=== PATIENT | female | born 1935 | race Two or more races ===

== ENCOUNTER 2023-04-15 07:08 | Inpatient (IN) | payer OTHER, SELFPAY ==
[2023-04-13] VITALS (10 sets, daily range): BP systolic 96–140; BP diastolic 41–75; PULSE 76–80; BMI 20.8; BMI 20.2
[2023-04-13 17:42] LABS: % Basophils 0.3 % (0-2); % Eosinophils 0.8 % (0-6); % Immature Granulocytes 0.3 % (0-0.5); % Lymphocytes 9.1 % (20.5-51.1); % Monocytes 5.4 % (1.7-9.3); % Neutrophils 84.1 % (42.2-75.2); Absolute Eosinophils 0.1 10^3/uL (0-0.7); Absolute Lymphocytes 0.7 10^3/uL (1.2-3.4); Absolute Monocytes 0.4 10^3/uL (0.1-0.6); Absolute Neutrophils 6.1 10^3/uL (1.4-6.5); Hemoglobin 9.7 g/dL (12.0-16.0); Mean Corp Hgb Conc. 33.4 g/dL (33.0-37.0); Mean Corpuscular Hgb 31.6 pg (27.0-31.0); Mean Corpuscular Volume 94.5 fL (81.0-99.0); Mean Platelet Volume 11.4 fL (7.4-10.4); Nucleated Red Blood Cells % 0 %; Platelet Count 192 10^3/uL (130-400); Red Blood Cell Count 3.07 10^6/uL (4.20-5.40); Red Cell Dist. Width 15.7 % (11.5-14.5); White Blood Cell Count 7.2 10^3/uL (4.8-10.8)
--- NOTE | 2023-04-13 17:42 | ED.GENMED ---
History of Present Illness
General
Chief Complaint: Fainting/Passed Out
Time Seen by Provider: 04/13/23 17:31
Travel History
Have you had any contact with someone who has COVID-19?: No
Do you have any symptoms of coronavirus? Fever > 100 degrees, chills, cough, shortness of breath, sore throat, loss of taste or smell, muscle aches, or headache?: No
History of Present Illness
History of Present Illness:
87-year-old female with history of hyperlipidemia presents to the emergency department after a witnessed syncopal event while eating dinner. Patient resides with her son, apparently over the past week has had a poor appetite and has not been eating
much. She is reporting nausea and diffuse abdominal pain. Today while eating the son noticed her go unresponsive for approximately 5 to 10 minutes, states she was slumped over forward in the chair. On arrival of EMS the patient was awake but
quite lethargic. She was noted to be hypotensive and given 600 cc of IV fluids. She has had a few episodes of vomiting in the past 2 to 3 days according to the son. Nursing note reports chest discomfort however the patient localizes this to the
upper abdomen. No recent fevers. On arrival noted to have a core temp of 93.2.
Review of Systems
Review of Systems
Allergies reviewed?: Yes
All Other Systems: ROS reviewed and negative except as documented in HPI and ROS
Phy Exam
Physical Exam
Physical Exam:
GEN: Chronically ill-appearing, frail, no immediate distress
Eyes: PERRLA, EOMs intact, no scleral icterus
HENT: NCAT, oral mucosa dry
Lungs: CTAB, no wheezes, rales, rhonchi, normal chest wall excursion
Cardiac: RRR, 3 out of 6 holosystolic murmur best heard at the right upper sternal border
Abdomen: Soft, generalized tenderness predominantly epigastrium and left upper quadrant, no rigidity or peritoneal signs
Neuro: Alert, follows commands, generally weak but moves all extremities symmetrically
MSK: No gross deformity or ecchymosis. No edema. No digital clubbing
Skin: No rashes, petechiae. Normal color, no pallor or jaundice.
Psych: Calm, cooperative, proper hygiene
Course
Orders/Labs/Results
Orders:
Orders
04/13/23 17:13
ECG as needed As Directed
ECG as needed for:: Chest Pain
04/13/23 17:35
Basic Metabolic Panel Urgent
Comment: BMP NO K
CBC/With Diff [Complete Blood Count/With Diff] Urgent
04/13/23 17:42
Elijah Hugger-Treatment ONCE
Patient's goal temperature:: 97 F
Additional Instructions:: Temperature and skin assessment per unit protocol
Straight cath- Treatment ONCE
0.9% Sodium Chloride 1000 ml [Nss] 1,000 ml IV BOLUS
04/13/23 18:22
Cortisol, Random Urgent
Lactic Acid Q4H
Comment: CANCEL 2nd LACTIC ACID IF 1st LACTIC ACID IS LESS THAN 2
Prothrombin Time Urgent
TSH Reflex To Free T4 Urgent
Venous Blood Gas Urgent
%Oxygen/Room Air: 97
Blood Culture Q30M
SHELLY Source: Blood/Venous
Specimen Description:
Blood Culture Q30M
SHELLY Source: Blood/Venous
Specimen Description:
04/13/23 18:41
Urinalysis Reflex To Culture Urgent
Date Specimen was Collected: 04/13/23
Time Specimen was Collected: 18:35
04/13/23 19:18
CT Abd/pel Without Iv Or Oral Urgent
Comment:
Reason For Exam: abd pain, vomiting
04/13/23 20:11
Comprehensive Metabolic Panel Urgent
Lipase Urgent
04/13/23 20:17
Add On- LAB Urgent
Tests Added?: lipase
Abnormal Lab Results
04/13/23 04/13/23
17:35 18:22
RBC 3.07 L 10^6/uL
(4.20-5.40)
Hgb 9.7 L g/dL
(12.0-16.0)
Hct 29.0 L %
(37.0-47.0)
MCH 31.6 H pg
(27.0-31.0)
RDW 15.7 H %
(11.5-14.5)
MPV 11.4 H fL
(7.4-10.4)
Absolute Lymphs (auto) 0.7 L 10^3/uL
(1.2-3.4)
Neutrophils % 84.1 H %
(42.2-75.2)
Lymphocytes % 9.1 L %
(20.5-51.1)
VBG pCO2 55 H mmHg
(35-48)
VBG HCO3 29.0 H mmol/L
(22-27)
BUN 54 H mg/dl
(7-17)
Creatinine 1.8 H mg/dL
(0.6-1.0)
Glucose 121 H mg/dl
(70-99)
04/13/23 17:35
Vital Signs
Initial and Last Documented VS:
Initial Vital Signs
Resp BP Pulse Ox
19 97/41 98
04/13/23 17:14 04/13/23 17:14 04/13/23 17:14
Last Documented Vital Signs
Temp Pulse Resp BP Pulse Ox
94.9 F L 73 15 108/50 96
04/13/23 19:30 04/13/23 20:14 04/13/23 20:14 04/13/23 20:14 04/13/23 20:14
MDM/Problems Addressed
MDM/Problems Addressed:
87-year-old female presents after witnessed syncopal event. Cannot discount the possibility of a cardiac dysrhythmia however this is likely mediated by TAQUERIA/dehydration given the patient's poor p.o. intake for the past week. She has generalized
tenderness on exam, no focal nature to the pain. CT was obtained although limited due to lack of IV contrast in the setting of her TAQUERIA, no clear acute pathology. Labs are otherwise unremarkable. She is also noted to be hypothermic requiring Elijah
hugger. Will admit to the hospitalist service for further workup
Comment
Comment:
Initial EKG independently interpreted by me shows normal sinus rhythm with a right bundle branch block at a rate of 64, no ST changes concerning for ischemia
*Critical Care Note
Total Time (30-74mins, 75-104mins- exclusive of procedures): Not Applicable
Update Note
Update Note:
04/13/20232021 PM: Patient's son was able to show me lab results from the patient's [facility] portal from mid March showing a baseline creatinine of 1.05 and a BUN of 37. Hgb 9.9 at that time
ED Attending Note
-
Portions of this chart may have been created with voice recognition software.� Occasional wrong word or��sound alike� substitutions may have occurred due to the inherent limitations of voice recognition software.
Discharge Plan
Departure
Patient Disposition: Admit
Date of Disposition: 04/13/23
Time of Disposition: 20:30
Admit to: Telemetry
Presentation/result/management discussed w/ accepting MD/DO: Hospitalist
Discharge Problem:
TAQUERIA (acute kidney injury), Syncope
Prescriptions:
No Action
ibuprofen 800 mg tablet
800 mg PO DAILY
levothyroxine 75 mcg tablet
75 mcg PO DAILY
prednisone 1 mg tablet
1 mg PO SA
furosemide 20 mg tablet
20 mg PO DAILY
cholecalciferol (vitamin D3) [Vitamin D3] 25 mcg (1,000 unit) Tablet
25 mcg PO DAILY
Centrum Silver Women 8 mg iron-400 mcg-50 mcg Tablet
1 tab PO DAILY
red yeast rice 600 mg Tablet
1,200 mg PO DAILY
Referrals:
Sloane Lugo MD [Family Provider] -
Interventions
Interventions:
*Risk Screen - Suicide Last Done: 04/13/23 19:02
*General Assessment Last Done: 04/13/23 19:07
*Neglect/Abuse Screening Last Done: 04/13/23 19:02
ED- Fall Risk Assessment Last Done: 04/13/23 19:02
*ED COVID-19 Vaccine History Last Done: 04/13/23 17:27
ED- Cardiac Assessment Last Done: 04/13/23 19:43
ED- Neurological Assessment Last Done: 04/13/23 19:43
[2023-04-13 18:02] LABS: Blood Urea Nitrogen 54 mg/dl (7-17); Calcium 9.8 mg/dl (8.4-10.2); Carbon Dioxide 28 mmol/L (22-30); Chloride 107 mmol/L (98-107); Estimated Creatinine Clearance 18 ml/min; Glucose 121 mg/dl (70-99); Sodium 138 mmol/L (135-145); eGFR 26.93
[2023-04-13] MEDS: NSS 1000 IV ×2 (18:13→22:13)
[2023-04-13 18:37] LABS: Venous Blood Gas B.E. 2.3 mmol/L (-4 to +4); Venous Blood Gas O2 Sat % 72.3 %; Venous Blood Gas pCO2 55 mmHg (35-48); Venous Blood Gas pH 7.33 (7.32-7.43); Venous Blood Gas pO2 44 mmHg (30-50)
[2023-04-13 18:48] LABS: Urine Albumin Negative (Neg - Trace); Urine Bilirubin Negative (Negative); Urine Character Clear (Clear); Urine Color Yellow; Urine Glucose Negative (Negative); Urine Ketone Negative (Negative); Urine Leukocyte Negative (Negative); Urine Nitrite Negative (Negative); Urine Occult Blood Negative (Negative); Urine Urobilinogen Negative (Neg - 1+)
[2023-04-13 18:49] LABS: Lactic Acid 1.1 mmol/L (0.7-2.0)
[2023-04-13 19:21] LABS: Cortisol, Random 14.2 ug/dl; TSH Reflex To Free T4 3.18 uIU/ml (0.47-4.68)
[2023-04-13 20:34] LABS: ALT (SGPT) 20 U/L (0-35); AST (SGOT) 36 U/L (14-36); Albumin 2.8 g/dl (3.5-5.0); Alkaline Phosphatase 130 U/L (38-126); Blood Urea Nitrogen 50 mg/dl (7-17); Calcium 8.9 mg/dl (8.4-10.2); Carbon Dioxide 23 mmol/L (22-30); Chloride 112 mmol/L (98-107); Estimated Creatinine Clearance 20 ml/min; Glucose 76 mg/dl (70-99); Lipase 223 U/L (23-300); Potassium 4.2 mmol/L (3.5-5.1); Sodium 139 mmol/L (135-145); Total Bilirubin 0.4 mg/dl (0.2-1.3); Total Protein 5.5 g/dl (6.3-8.2); eGFR 31.02
--- NOTE | 2023-04-13 20:49 | HPS.HSE ---
Addendum entered and electronically signed by Parker De La Curz MD 04/13/23 21:54:
F/U admission w/u
NEG Covid Ag
NEG UA
EKG:
SINUS RHYTHM WITH 1ST DEGREE A-V BLOCK
RIGHT BUNDLE BRANCH BLOCK
ABNORMAL ECG
WHEN COMPARED WITH ECG OF 13-APR-2023 17:27,
PREMATURE ATRIAL COMPLEXES ARE NO LONGER PRESENT
HCT: No acute intracranial abnormality noted.
Original Note:
Family Physician
-
Family Physician: Sloane Lugo MD
Chief Complaint
-
passed out
History of Present Illness
87F from home with son Jose on LT4, HLD, moderate MR seen at ER for evalaution of a witnessed syncopal event while Son noted poor appetite and poor intake for a week due to nausea and diffuse abdominal pain. Today while eating the son
noticed her go unresponsive for approximately 5 to 10 minutes, states she was slumped over forward in the chair.
On arrival of EMS the patient was awake but quite lethargic. She was noted to be hypotensive and given 600 cc of IV fluids. She has had a few episodes of vomiting in the past 2 to 3 days according to the son. Nursing note reports chest discomfort
however the patient localizes this to the upper abdomen. No recent fevers.
On arrival noted to have a core temp of 93.2.
Medical History
Past Medical History
Past Medical History: Reports HTN, Hypothyroidism and Valvular Disease (mod MR )
Past Surgical History: Reports Other
Social History
Tobacco: Non-smoker
Alcohol: None
Living: With Family
Family History
Family History: Not pertinent
Allergies / Home Medications
Allergies reflects when Allergies were last updated in [facility].
Home Medications with original date entered in [facility]
Allergy/Medication List:
Allergies
Allergy/AdvReac Type Severity Reaction Status Date / Time
No Known Allergies Allergy Verified 04/13/23 17:15
Home Medications
cholecalciferol (vitamin D3) 25 mcg (1,000 unit) tablet (Vitamin D3) 25 mcg PO DAILY 04/13/23
furosemide 20 mg tablet 20 mg PO DAILY 04/13/23
ibuprofen 800 mg tablet 800 mg PO DAILY 04/13/23
levothyroxine 75 mcg tablet 75 mcg PO DAILY 04/13/23
lsclwjyj-tnlh-mgro 8 mg-folic 400 mcg-K 50 mcg-lutein 300 mcg tablet (Centrum Silver Women) 1 tab PO DAILY 04/13/23
prednisone 1 mg tablet 1 mg PO SA 04/13/23
red yeast rice 600 mg tablet 1,200 mg PO DAILY 04/13/23
Review of Systems
-
Constitutional: Reports No Symptoms
EENT: Reports No Symptoms
Respiratory: Reports No Symptoms
Cardiac: Reports Syncope
Abdomen/GI: Reports No Symptoms
: Reports No Symptoms
Musculoskeletal: Reports No Symptoms
Skin: Reports No Symptoms
Neurological: Reports See HPI
Endocrine: Reports No Symptoms
Hematologic/Lymphatic: Reports No Symptoms
Psych: Reports No Symptoms
Physical Exam
Vital Signs
Vital Signs
Temp Pulse Resp BP Pulse Ox
97.6 F 73 15 108/50 96
04/13/23 20:48 04/13/23 20:14 04/13/23 20:14 04/13/23 20:14 04/13/23 20:14
Physical Exam
General: Other (see below )
Laboratory Results
-
04/13/23 17:35
04/13/23 20:11
Laboratory Results
PT 14.0 Sec (11.4-14.6) 04/13/23 18:22
INR 1.10 04/13/23 18:22
Lactic Acid Cancelled 04/13/23 21:45
Total Bilirubin 0.4 mg/dl (0.2-1.3) 04/13/23 20:11
AST 36 U/L (14-36) 04/13/23 20:11
ALT 20 U/L (0-35) 04/13/23 20:11
Alkaline Phosphatase 130 U/L (38-126) H 04/13/23 20:11
Lipase 223 U/L (23-300) 04/13/23 20:11
Data Reviewed
-
CT Scan: Other
Lab Data: Labs Reviewed by me
Impression/Plan
-
Reviewed VS: T94.9 BP 108/50
PE
Gen: chronically ill-appearing, frail
HEENT: no scleral icterus
Neck: supple, no JVD
Lungs: symmetric ARE, CTA
Cor: RRR, Holosystolic murmur at Rt USB
Abdomen: Soft, generalized tenderness predominantly epigastrium and left upper quadrant,
LEAD GENERATION REPRESENTATIVE: Alert, follows commands, generally weak, NFND
MS: no edema
Psych: Calm, cooperative, proper hygiene
Data
nl WCC
Hgb 9.7
VBG 7.33/pCO2 55/pO2 44
Na 138
Cl 107
HCO3 28
Cr 1.8
LA 1.1
TSH 1.8
Random cortisol 14
Pending LFTs
NEG UA
BCx sent
AP CT Without Iv Or Oral
1. No significant acute abnormality identified in the abdomen or pelvis, within the limits of unenhanced CT, as described above.
2. Trace bilateral pleural effusions and bilateral lower lobe airspace disease suggesting combination of atelectasis and pneumonia.
3. Mild cardiomegaly and small pericardial effusion.
4. Chronic appearing lumbar compression deformities.
07/14/22 ECHO
LVEF 55-60%
Mod MR
Mild , Mild AR
Mild TR
No prior admission and Labs in [facility]
ASSESSMENT & PLAN
Witnessed Syncope - cardiac vs. dehydration with postural orthostais or both
Relative hypotension
Loud murmur at Rt USB - known HX mod MR & mild with mild AR per last ECHO july 2022 ( Dr Fall)
- Ortho VSS now
- cont IV NS
- Market Developer ordered Covid Ag , admission TPNI and admission EKG to complete syncope w/u
- HCT to complete w/u ordered
- Fall precaution
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
- Neuro and DC card consult
Hypothermia on arrival - normalized Temp
- nl TSH, nl random cortisol
- f/u UA
- observe VSS
Presumed TAQUERIA suspect volume contraction
- IVF and trend Cr
- held Ibuprofen, Frusemide
Hypothyroid on LT4
nl TSH
Recent poor POs
- check Covid
DVT Px: SCD
Code: Full
Obs TLM
Case dw Son at bed side
--- NOTE | 2023-04-13 21:09 | EDRN ---
Per EDT, pt unable to stand for ortho VS because she feels too weak. Son says pt speaks Gujarti, no bulgarian so he will stay overnight with pt. Pt can speak a little [place] but he says she is not fluent.
[2023-04-13 21:11] LABS: COVID-19 Antigen Negative (Negative)
[2023-04-13 21:20] LABS: Troponin I < 0.012 ng/ml
[2023-04-14 03:00] VITALS: BP 114/50
--- NOTE | 2023-04-14 04:05 | PTCARENOTE ---
Addendum entered by Vinita Clark RN 04/14/23 04:18:
correction. Temp low on admission (95.2) and BETH Lee notified and adilene rodriguez initiated for target goal of 97.0.
Original Note:
Pt arrived from ED aprox 2144. Pt pulled over from stretcher to bed. Son with her and will stay with her due to language barrier. Pt vitals stable. No c/o pain. IVF started to L wrist. Pt instructed to ring for assistance.
[2023-04-14 05:12] LABS: Hematocrit 25.6 % (37.0-47.0); Hemoglobin 8.4 g/dL (12.0-16.0); Mean Corp Hgb Conc. 32.8 g/dL (33.0-37.0); Mean Corpuscular Hgb 31.6 pg (27.0-31.0); Mean Corpuscular Volume 96.2 fL (81.0-99.0); Mean Platelet Volume 11.2 fL (7.4-10.4); Platelet Count 151 10^3/uL (130-400); Red Blood Cell Count 2.66 10^6/uL (4.20-5.40); Red Cell Dist. Width 15.1 % (11.5-14.5); White Blood Cell Count 5.1 10^3/uL (4.8-10.8)
[2023-04-14 05:32] LABS: Blood Urea Nitrogen 49 mg/dl (7-17); Calcium 8.9 mg/dl (8.4-10.2); Carbon Dioxide 22 mmol/L (22-30); Chloride 110 mmol/L (98-107); Estimated Creatinine Clearance 20 ml/min; Glucose 64 mg/dl (70-99); Potassium 4.1 mmol/L (3.5-5.1); Sodium 138 mmol/L (135-145); eGFR 31.02
[2023-04-14 06:00] VITALS: BMI 20.2
[2023-04-14 07:25] VITALS: BP 125/60
--- NOTE | 2023-04-14 07:30 | CON.CAR ---
Addendum entered and electronically signed by Breann Vilchis DO 04/14/23 12:13:
I saw and examined the patient.
The Coin Machine Operator's note was reviewed and I agree with the note.
Comment: Seen and examined after 2D echocardiogram pending review. Patient is present with her son who provided translation and review of recent events leading to hospitalization. Patient is non-[place] Citizen speaking but offers no specific complaints
except for fatigue. Patient lives at home with her son and he was present at time of LOC/syncope episode. Patient's son describes that patient was feeling unwell for the last week described as fullness in her abdomen and no appetite. He reports she
told them she did not want to eat or drink. He denies nausea or dysphagia. No diarrhea. Patient's son tried to gently force her to eat and she vomited. No chest pain or SOB. Then yesterday patient was at home and was seated at the dining table and
trying to eat and drink some juice, she was holding the cup in her hand and looking at her son, but not responding. Her son called her name and her eyes were open, but she was not speaking. She eventually slumped forward. Her son called 911 and when
paramedics arrived she was hypotensive at 89/39. In the ER she had TAQUERIA with Cre 1.8 and a previous baseline was 1.05 in 03/2023. Patient also noted to have a baseline Hgb of 9.9 in 03/2023 and after IVFs this admission her Hgb is down to 8.4.
Patient's son says that the only other episode of loss of consciousness that patient has had was during remote cerebral aneurysm clipping. Also, patient was hypothermic [facility] and COVID negative, but blood cultures pending.
GEN: frail, lying supine, cathectic
HEENT: mm dry
LUNGS: bronchovesicular BS, decreased at bases.
CV: Reg, S1/S2, 3/6 IAIN
ABD: soft, BS+, NT, ND
EXT: No edema. Hyperpigmented LE
Plan:
Witnessed Syncope/marked hypothermia in setting of poor oral intake
-Etiology work up ongoing: cardiac vs. dehydration with postural orthostasis
- Echocardiogram today for /pericardial effusion (small pericardial effusion on CT scan)- suspect progression pf AV disease
- Monitor tele
- s/p IVF hydration- would consider stopping not BP improved and follow oral intake
- Infectious work up per Medicine- CT abd with possible concern for PNA. Consider CXR
- TSH normal on therapy
- Patient on chronic prednisone and follows with Rheumatology- cortisol checked.
- HCT ok- Neurology consulted; hx cerebral aneurysm clipping�
TAQUERIA suspect�dehydration with outpatient Lasix
- IVF and trend Cr/1.8 on admission 1.6 this morning
- Continue to trend obtained renal and bladder ultrasound
- held Ibuprofen and lasix
Hypothyroidism
-nl TSH
FTT/poor oral intake
-Per Medicine
Original Note:
Consultation
Consultation Request
Date/Time Consultation Requested: 04/13/23 at 2201
Date/Time Consultation Performed: 04/14/23 at 0730
Requesting Provider: Dr. Cortez
Performing Provider: Dr. Dalal
Reason for Consultation: Syncope
Medical History
-
History of Present Illness:
[facility] after a witnessed episode of loss of consciousness and cardiology has been consulted. Patient lives at home with her son and he was present for this episode. Patient's son describes that patient was feeling unwell for
the last week described as fullness in her abdomen and no appetite so she was not eating and drinking. Patient's son tried to gently force her to eat and she vomited with that. No chest pain or SOB. Then yesterday patient was at home and was seated
at the dining table and trying to eat and drink some juice, she was holding the cup in her hand and looking at her son, but not responding. Her son called her name and her eyes were open, but she was not speaking. She eventually slumped forward. Her
son called 911 and when paramedics arrived she was hypotensive at 89/39. In the ER she had TAQUERIA with Cre 1.8 and a previous baseline was 1.05 in 03/2023. Patient also noted to have a baseline Hgb of 9.9 in 03/2023 and after IVFs this admission her Hgb
is down to 8.4. No recurrence of syncope. Patient's son says that the only other episode of loss of consciousness that patient has had was during cerebral aneurysm clipping remotely. Also, patient was hypothermic on arrival [facility] and COVID
negative, but blood cultures pending.
PMH:
cRBBB
Moderate MR and mild by echo 07/2022
h/o HTN
Anemia
RA
Hypothyroidism
h/o cerebral aneurysm with clipping 03/2012
Past Medical History
Past Medical History: Other (in HPI)
Past Surgical History: Orthopedic and Other (cerebral aneurysm clipping 03/2012)
Social History
Tobacco: Non-Smoker
Alcohol: None
Drug: None
Living: With Family (her son is in the room with her and is primary caregiver)
Family History
Family History: Reviewed & Not Pertinent
Allergies / Home Medications
Allergy/AdvReac Type Severity Reaction Status Date / Time
No Known Allergies Allergy Verified 04/13/23 17:15
Medication Instructions Recorded Confirmed Type
cholecalciferol (vitamin D3) 25 25 mcg PO DAILY Supplement 04/13/23 04/13/23 History
mcg (1,000 unit) tablet (Vitamin
D3)
furosemide 20 mg tablet 20 mg PO DAILY Fluid 04/13/23 04/13/23 History
Retention/Swelling
ibuprofen 800 mg tablet 800 mg PO DAILY Pain 04/13/23 04/13/23 History
levothyroxine 75 mcg tablet 75 mcg PO DAILY Thyroid 04/13/23 04/13/23 History
plivccna-jsvg-exzn 8 mg-folic 400 1 tab PO DAILY Supplement 04/13/23 04/13/23 History
mcg-K 50 mcg-lutein 300 mcg tablet
(Centrum Silver Women)
prednisone 1 mg tablet 1 mg PO SA Anti-Inflammatory 04/13/23 04/13/23 History
red yeast rice 600 mg tablet 1,200 mg PO DAILY High Cholesterol 04/13/23 04/13/23 History
Review of Systems
-
History Source: Patient and Family (her son is bedside and essentially contributes all of the HPI)
All other systems: Negative unless noted
Physical Exam
Vital Signs
Temp Pulse Resp BP Pulse Ox
97.8 F 71 15 125/60 96
04/14/23 07:25 04/14/23 07:25 04/14/23 07:25 04/14/23 07:25 04/14/23 07:25
GEN: NAD. AAOx3 with son acting as pulpit operator
HEENT: EOMI, MMM
LUNGS: CTA B/L, no wheezes or rales
CV: Reg, S1/S2, 2/6 IAIN
ABD: soft, BS+, NT, ND
EXT: No clubbing, cyanosis, lesions or edema B/L
NEURO: Gross non-focal
SKIN: Warm, dry and pink. No rash
Lab Results
04/14/23 05:01
04/14/23 05:01
Troponin I < 0.012 ng/ml 04/13/23 20:48
Impression / Plan
-
PCP: Dr. Sloane Lugo
Cardiology: Dr. Nava, last seen 04/02/22
Impression:
Admitted with loss of consciousness 04/13/23
TAQUERIA
Hypothermia on admission
cRBBB
Moderate MR and mild by echo 07/2022
h/o HTN
Anemia, acute on chronic
RA
Hypothyroidism
h/o cerebral aneurysm with clipping 03/2012
Echo 07/24/22: EF 55-60%, mod MR, mild and mild aortic regurgitation, small pericardial effusion
Plan:
-Patient came to [facility] yesterday after a witnessed episode of loss of consciousness and cardiology has been consulted. Patient lives at home with her son and he was present for this episode. Patient's son describes that patient was feeling unwell for
the last week described as fullness in her abdomen and no appetite so she was not eating and drinking. Patient's son tried to gently force her to eat and she vomited with that. No chest pain or SOB. Then yesterday patient was at home and was seated
at the dining table and trying to eat and drink some juice, she was holding the cup in her hand and looking at her son, but not responding. Her son called her name and her eyes were open, but she was not speaking. She eventually slumped forward. Her
son called 911 and when paramedics arrived she was hypotensive at 89/39. In the ER she had TAQUERIA with Cre 1.8 and a previous baseline was 1.05 in 03/2023. Patient also noted to have a baseline Hgb of 9.9 in 03/2023 and after IVFs this admission her Hgb
is down to 8.4. No recurrence of syncope. Patient's son says that the only other episode of loss of consciousness that patient has had was during cerebral aneurysm clipping remotely. Also, patient was hypothermic on [facility] and COVID
negative, but blood cultures pending.
-Patient was not orthostatic by VS in the ER, but was initially hypotensive in the ER. Hypotension has improved with IVFs. Patient's episode sounds like syncope probably due to orthostasis and hypovolemia from poor PO intake and vomiting in the days
leading up to this episode.
-Agree with holding her usual dose of Lasix 20 mg PO daily, but try to restart prior to discharge if taking eating/drinking better.
-BP has improved and would stop NSS at 60 ml/hr.
-Check echo to re-evaluate previously moderate MR and mild /AR
-ECG reviewed by me with stable and chronic RBBB and no acute ischemic changes or high degree heart block.
--- NOTE | 2023-04-14 07:59 | W.PN.HOSP.TC ---
Today's Communication/Plan
-
Continue cautious IV hydration
Cautious advancement in diet
Check 2D echocardiogram
Continue to hold furosemide
Monitor BMP
Obtain renal bladder ultrasound
Assessment / Plan
Assessment / Plan
87F from home with son Hypotyhroid on LT4, HLD, moderate MR seen at ER for evalaution of a witnessed syncopal event while Son noted poor appetite and poor intake for a week due to nausea and diffuse abdominal pain.� Today while eating the son
noticed her go unresponsive for approximately 5 to 10 minutes, states she was slumped over forward in the chair.�
On arrival of EMS the patient was awake but quite lethargic.� She was noted to be hypotensive and given 600 cc of IV fluids.� She has had a few episodes of vomiting in the past 2 to 3 days according to the son.� Nursing note reports chest discomfort
however the patient localizes this to the upper abdomen.� No recent fevers.�
On arrival noted to have a core temp of 93.2.
PE
Gen: chronically ill-appearing, frail
HEENT: no scleral icterus
Neck: supple, no JVD
Lungs: symmetric ARE, CTA
Cor: RRR, Holosystolic murmur at Rt USB
Abdomen:� Soft, generalized tenderness predominantly epigastrium and left upper quadrant,
CUSHION GUM APPLICATOR: Alert, follows commands, generally weak, NFND
MS: no edema
Psych:� Calm, cooperative, proper hygiene
AP CT Without Iv Or Oral
1. No significant acute abnormality identified in the abdomen or pelvis, within the limits of unenhanced CT, as described above.
2. Trace bilateral pleural effusions and bilateral lower lobe airspace disease suggesting combination of atelectasis and pneumonia.
3. Mild cardiomegaly and small pericardial effusion.
4. Chronic appearing lumbar compression deformities.
07/14/22 ECHO
LVEF 55-60%
Mod MR
Mild , Mild AR
Mild TR
Witnessed Syncope - cardiac vs. dehydration with postural orthostais or both
Relative hypotension
Loud murmur at Rt USB - known HX mod MR & mild with mild AR per last ECHO july 2022 ( Dr Fall)
- Ortho VSS now
- cont IV NS
-�Staffing Rn ordered� Covid Ag which was negative, admission TPNI within normal limits and admission EKG�only showed a right bundle branch block
- HCT was unremarkable
- Fall precaution
- hospital monitor
- Neuro and DC card� consult
Hypothermia on arrival - normalized Temp
-Possible viral course
- nl TSH, nl random cortisol
- f/u UA
- observe VSS
Presumed TAQUERIA suspect� volume contraction
- IVF and trend Cr/1.8 on admission 1.6 this morning
-Continue to trend obtained renal and bladder ultrasound
- held Ibuprofen, Frusemide
Hypothyroid on LT4
nl TSH
Recent poor POs
- check Covid
DVT Px: SCD
Code: Full
Obs TLM
Case dw Son at bed side again this morning April 14
Anticipated Discharge: 24 - 48 hours
Subjective/Interval History
-
Date of Service: April 14, 2023
Has multiple complaints and some reproducible chest sternal pain leg pain vague abdominal pain type disk quality control supervisor from son at bedside. No emesis overnight wants to eat.
Objective Data
-
Labs:
Laboratory Results
04/13/23 04/14/23
20:11 05:01
WBC 5.1
Hgb 8.4 L
Hct 25.6 L
Plt Count 151 D
Sodium 139 138
Potassium 4.2 4.1
Chloride 112 H 110 H
Carbon Dioxide 23 22
BUN 50 H 49 H
Creatinine 1.6 H 1.6 H
Glucose 76 64 L
Calcium 8.9 8.9
Total Bilirubin 0.4
AST 36
ALT 20
Alkaline Phosphatase 130 H
Vital Signs:
Vital Signs
Temp Pulse Resp BP Pulse Ox
97.8 F 71 15 125/60 96
04/14/23 07:25 04/14/23 07:25 04/14/23 07:25 04/14/23 07:25 04/14/23 07:25
Review of Systems
-
History Source: Patient
Constitutional: Reports Fatigue and Weakness
Respiratory: Reports No Symptoms
Cardiac: Reports Chest Pain
Abdomen/GI: Reports Abdominal Pain and Nausea
Genitourinary: Reports No Symptoms
Neuro: Reports Weakness and Other (Syncope)
Physical Exam
-
General: Appears Chronically Ill
HEENT: Normocephalic, Anicteric and PERRLA
Respiratory: Clear to Auscultation
Cardiac: Regular Rhythm and Murmur (ejection site)
GI: Soft and Nontender
Musculoskeletal: No Edema
Neuro: Awake and Alert
Data Reviewed
-
Total Time Spent with Patient (in minutes): 56
CT Scan: Report Reviewed by me (CT of the head and abdomen pelvis results reviewed)
Medical Tests (Nuc Med, Echo etc): Report Reviewed by me
Labs: Labs Reviewed by me, Discussed with Patient and Discussed with Family
[2023-04-14] MEDS: SYNTHROID 75 MCG PO (08:13)
[2023-04-14] MEDS: TYLENOL 650 MG PO (08:20)
--- NOTE | 2023-04-14 08:24 | CON.NEURO4 ---
Addendum entered and electronically signed by Randolph Morales MD 04/14/23 12:14:
I saw and evaluate the patient I reviewed the note by Mag Stallworth agree with the findings the following comments:
87-year-old woman with a past medical history of previous ruptured cerebral aneurysm with clipping, osteoporosis, rheumatoid arthritis, hypothyroidism presenting to hospital with episode of unresponsiveness witnessed by her son at home while sitting
down eating a meal.
For the past couple of days patient has had some vomiting abdominal pain and poor p.o. intake she has not had any sick contacts or any unusual foods.
Patient witnessed by her son to be eating and then fairly quickly seem to lose consciousness with no unusual eye movements or gaze deviation or any shaking movements tongue biting or incontinence of urine or bowel function seen, unconsciousness seem
to last around 10 minutes and then patient gradually returned to normal, blood pressure was 89/39 for EMS on arrival and they gave her IV fluids, noted to be hypothermic to 93.2 in the ED. patient's son and the patient both report generalized
weakness. No history of any overt seizure activity in the past.
Neurologic examination shows slow and drowsy patient who answers questions appropriately in her jena language, obeys commands consistently, normal cranial nerves generalized weakness 4/5 in shoulder abduction arm flexion hip flexion bilaterally
with no motor asymmetry or abnormal movements or parkinsonism tremor seen
CT head noncontrast with no acute abnormality there is some left-sided hypodensity and encephalomalacia on left temporal lobe related to previous insult no acute hemorrhage no acute infarct
Assessment: Likely this is vasovagal syncope versus dehydration and metabolic abnormalities producing her overall picture. Abdominal pain as well as poor p.o. intake dehydration vomiting could trigger vagal response. Occurred while lying down.
Some potential for cardiac abnormality but the clinical context of GI illness vomiting dehydration would make this less likely. Overall low concern for seizure.
Recommendations
-Hydration, monitor for GI symptoms treating symptomatically and deferred to hospitalist team for her gastrointestinal issues
-Monitor on cardiac telemetry
-Not seeing indication for EEG here given the overall clinical context does not support seizure
-No further brain imaging recommended from my standpoint
Will sign off call questions or concerns
Original Note:
Consultation - Neurology 4
-
CONSULTING PHYSICIAN: Francesca Morales MD
REFERRING PHYSICIAN: Hospitalists/Dr. De La Cruz
DICTATED BY: BETH Puente
DATE/TIME OF REQUEST: 04/13/23
DATE/TIME OF CONSULTATION: 04/14/23
Reason for Consultation: Syncope
History of Present Illness:
This is an 87-year-old female who has presented to the hospital on 04/13/23 with report of loss of consciousness. Patient does not speak Amharic, this information is obtained from her son at bedside. For almost a week she has been feeling unwell with
report of poor appetite, abdominal discomfort, generalized weakness, and some vomiting over the last few days. Yesterday (04/13/23), she was sitting at the kitchen table trying to eat/drink, when she suddenly slumped forward and dropped a cup of juice
from her left hand. Her son reports that the patient was unconscious but her eyes were open throughout the entire episode with no abnormal eye movements noted. He called 911. After about 10 minutes, she gradually woke up again. He denies any body
shaking, incontinence of bowel/bladder, and tongue biting. Blood pressure on EMS arrival was 89/39 and they administered IVF. On arrival in the ER, temperature was 93.[address] Head was obtained and is negative for any acute abnormalities. Today
(04/14/23), patient reports feeling very weak, tired, and mild abdominal discomfort. She denies any headache, dizziness, vision changes, speech/swallow difficulty, chest pain, palpitations, and shortness of breath. She also reports a burning sensation
in bilateral toes. Her son reports that the only slightly similar event to this in the past was in 2012. At that time, she had a severe headache, vomiting, and loss of consciousness and was found to have a left-sided ruptured aneurysm s/p clipping
x3 at [facility]. She does not currently follow with a Neurosurgeon. At baseline, she uses a rolling walker/wheelchair for ambulation but attends to all of her personal care needs.
Past Medical History: Ruptured cerebral aneurysm/hemorrhagic stroke, Osteoporosis, rheumatoid arthritis, hypothyroidism
Surgical History: Cerebral aneurysm clipping x3, b/l cataract removal, b/l TKR
Family History: Reviewed and noncontributory.
Social History: Denies tobacco, alcohol, and illicit drug use.
Allergies: No known allergies.
Home Medications: See below.
Review of Symptoms:
Patient denies any fever, headache, chest pain, shortness of breath, or symptoms.
�Per the HPI.�All systems are reviewed negative except above.
Physical Exam:
The patient is afebrile, abdomen is nondistended, breathing is unlabored, skin is warm and dry, no edema. PVD discoloration BLE.
Neurologic Examination:
The patient is awake, alert and oriented x 3. She is able to follow commands and answer questions appropriately. There is no aphasia or dysarthria. Speech is hypophonic. On cranial nerve assessment, pupils are 3 mm bilateral, round and reactive to
light and accommodation. Visual craft are full. Extraocular movements are intact. Facial sensations are intact and bilaterally symmetrical, there is no facial asymmetry. Hearing is intact bilaterally to normal conversation volume. Tongue palate
and uvula are midline. Sternocleidomastoid strengths are full bilaterally. Motor strengths are 4/5 bilateral upper and lower extremities on medical research Blount scale. There is no drift or involuntary movement noted. Deep tendon reflexes are 1+
bilateral upper and lower extremities and Babinski is absent bilaterally. Sensations of temperature and vibration are mildly reduced in distal bilateral lower extremities. There was no extinction noted on double simultaneous stimulation.
Coordination is intact by finger to nose bilaterally.
Lab Results: See below.
Neuro Imaging:
1. CT Head 04/13/23: No acute intracranial abnormality noted.
Differentials for the patient's presentation include:
1. Likely vasovagal syncope in the setting of abdominal discomfort.
2. Low concern for seizure or stroke.
3. Peripheral neuropathy.
Patient has the following risk factors for their symptoms: GI illness, hx aneurysm, age
Recommendations:
-Do not see a role for further neurological imaging at this time.
-Patient should follow with a Neurosurgeon as an outpatient for periodic aneurysm surveillance.
-We will follow as-needed. Please contact our Neurology service with any questions or concerns.
Discussed patient care with: Dr. Morales, the patient, patient's son
Vital Signs and Labs
-
Vital Signs and Labs:
Vital Signs
Temp Pulse Resp BP Pulse Ox
97.1 F 64 15 122/53 97
04/14/23 11:21 04/14/23 11:21 04/14/23 11:21 04/14/23 11:21 04/14/23 11:21
Lab Results
04/14/23 05:01
04/14/23 05:01
PT 14.0 Sec (11.4-14.6) 04/13/23 18:22
INR 1.10 04/13/23 18:22
Sodium 138 mmol/L (135-145) 04/14/23 05:01
Potassium 4.1 mmol/L (3.5-5.1) 04/14/23 05:01
BUN 49 mg/dl (7-17) H 04/14/23 05:01
Glucose 64 mg/dl (70-99) L 04/14/23 05:01
Calcium 8.9 mg/dl (8.4-10.2) 04/14/23 05:01
Medications
-
Active Medications
Generic Name Dose Route Start Last Admin
Trade Name Freq PRN Reason Stop Dose Admin
Acetaminophen 650 mg 04/13/23 21:46 04/14/23 08:20
Acetaminophen 325 Mg Tablet PO 05/11/23 21:45 650 mg
Q4HPRN PRN Administration
mild pain/ELISE/temp> 100.4F
Enoxaparin Sodium 30 mg 04/14/23 18:00
Enoxaparin Sodium 30 Mg/0.3 Ml Syringe SC 05/12/23 17:59
QPM ADAM
Sodium Chloride 1,000 mls @ 60 mls/hr 04/13/23 21:46 04/13/23 22:13
Nss IV 1,000 mls
.[id number] ADAM Administration
Levothyroxine Sodium 75 mcg 04/14/23 07:30 04/14/23 08:13
Levothyroxine 75 Mcg Tablet PO 05/12/23 07:29 75 mcg
DAILY@0730 [facility] Administration
Home Medications
Medication Instructions Recorded
cholecalciferol (vitamin D3) 25 25 mcg PO DAILY Supplement 04/13/23
mcg (1,000 unit) tablet (Vitamin
D3)
furosemide 20 mg tablet 20 mg PO DAILY Fluid 04/13/23
Retention/Swelling
ibuprofen 800 mg tablet 800 mg PO DAILY Pain 04/13/23
levothyroxine 75 mcg tablet 75 mcg PO DAILY Thyroid 04/13/23
zeqywpsh-vmrk-wpnx 8 mg-folic 400 1 tab PO DAILY Supplement 04/13/23
mcg-K 50 mcg-lutein 300 mcg tablet
(Centrum Silver Women)
prednisone 1 mg tablet 1 mg PO SA Anti-Inflammatory 04/13/23
red yeast rice 600 mg tablet 1,200 mg PO DAILY High Cholesterol 04/13/23
--- NOTE | 2023-04-14 10:23 | PTCARENOTE ---
pt non cayman islander speaking. son at bedside to translate. he states she is oriented x3. having pain in her toes and fingers. described as a tingling sensation. tylenol given. scab noted on right foot toe.
[2023-04-14 11:21] VITALS: BP 122/53
--- NOTE | 2023-04-14 11:30 | CM ---
Addendum entered by Arina Dunham RN 04/14/23 12:40:
The patient is being admitted under observational status. The observational letter was provided and explained. There were no questions with regards to the letter.
Original Note:
Reviewed the patient's chart and spoke with the patient's son at the bedside. The patient resides with her son in a two story home with two steps to enter. The patient has a shower chair, shower rails and toilet rails in home. The patient has a
complete first floor set-up. No VN or SNF in the past. The patient's pharmacy of choice is the [facility]. CM continues to be available to patient/family and is monitoring medical plan for needs at discharge.
Plan: Discharge plans will depend on the patient's progress. Family hoping for home with VN services.
[2023-04-14 14:50] VITALS: BP 96/41
[2023-04-14] MEDS: NSS 1000 IV (15:09)
[2023-04-14] MEDS: LOVENOX 30 MG SC (17:20)
[2023-04-14 19:21] VITALS: BP 142/68
[2023-04-14] MEDS: VIBRAMYCIN 100 MG PO (20:24)
[2023-04-14 22:35] LABS: Procalcitonin < 0.05 ng/ml (0.0-0.25)
[2023-04-14 23:15] VITALS: BP 149/66
[2023-04-15 03:43] VITALS: BP 136/57
[2023-04-15 06:00] VITALS: BMI 20.4
[2023-04-15 06:24] LABS: Hematocrit 24.9 % (37.0-47.0); Hemoglobin 8.3 g/dL (12.0-16.0); Mean Corp Hgb Conc. 33.3 g/dL (33.0-37.0); Mean Corpuscular Hgb 31.7 pg (27.0-31.0); Mean Platelet Volume 11.6 fL (7.4-10.4); Platelet Count 159 10^3/uL (130-400); Red Blood Cell Count 2.62 10^6/uL (4.20-5.40); Red Cell Dist. Width 15.4 % (11.5-14.5); White Blood Cell Count 5.8 10^3/uL (4.8-10.8)
[2023-04-15] MEDS: NSS 1000 IV (06:36)
[2023-04-15 06:46] LABS: Blood Urea Nitrogen 45 mg/dl (7-17); Calcium 8.5 mg/dl (8.4-10.2); Carbon Dioxide 22 mmol/L (22-30); Chloride 114 mmol/L (98-107); Estimated Creatinine Clearance 27 ml/min; Glucose 72 mg/dl (70-99); Sodium 142 mmol/L (135-145); eGFR 43.81
[2023-04-15 07:58] VITALS: BP 141/101
--- NOTE | 2023-04-15 08:20 | W.PN.HOSP.TC ---
Today's Communication/Plan
-
Will try for discharge later today after physical therapy assessment possible need for VNA at home with PT if tolerated with walker working be discharged
Discontinue IV fluids
Resume Lasix
TAQUERIA now resolved
Encouraged oral intake and activity
See no need for further antibiotic which will be discontinued
Assessment / Plan
Assessment / Plan
87F from home with son Hypotyhroid on LT4, HLD, moderate MR seen at ER for evalaution of a witnessed syncopal event while Son noted poor appetite and poor intake for a week due to nausea and diffuse abdominal pain.� Today while eating the son
noticed her go unresponsive for approximately 5 to 10 minutes, states she was slumped over forward in the chair.�
On arrival of EMS the patient was awake but quite lethargic.� She was noted to be hypotensive and given 600 cc of IV fluids.� She has had a few episodes of vomiting in the past 2 to 3 days according to the son.� Nursing note reports chest discomfort
however the patient localizes this to the upper abdomen.� No recent fevers.�
On arrival noted to have a core temp of 93.2.
PE
Gen: chronically ill-appearing, frail
HEENT: no scleral icterus
Neck: supple, no JVD
Lungs: symmetric ARE, CTA
Cor: RRR, Holosystolic murmur at Rt USB
Abdomen:� Soft, generalized tenderness predominantly epigastrium and left upper quadrant,
ASSISTANT WINEMAKER: Alert, follows commands, generally weak, NFND
MS: no edema
Psych:� Calm, cooperative, proper hygiene
AP CT Without Iv Or Oral
1. No significant acute abnormality identified in the abdomen or pelvis, within the limits of unenhanced CT, as described above.
2. Trace bilateral pleural effusions and bilateral lower lobe airspace disease suggesting combination of atelectasis and pneumonia.
3. Mild cardiomegaly and small pericardial effusion.
4. Chronic appearing lumbar compression deformities.
07/14/22 ECHO
LVEF 55-60%
Mod MR
Mild , Mild AR
Mild TR
Witnessed Syncope -presumed now in relation to dehydration poor oral intake and TAQUERIA
Relative hypotension now resolved
Loud murmur at Rt USB - known HX mod MR & mild with mild AR per last ECHO july 2022 ( Dr Fall)
-No change on present echocardiogram in comparison to July 2022
- Ortho VSS now
-Will discontinue IV fluids and restart Lasix
-�Book Shelver ordered� Covid Ag which was negative, admission TPNI within normal limits and admission EKG�only showed a right bundle branch block
- HCT was unremarkable
- Fall precaution
- laboratory monitor
- Neuro and DC card� consult appreciated
Hypothermia on arrival - normalized Temp
-Possible viral course
-Mild basilar opacity left side with atelectasis
-Procalcitonin normal
- nl TSH, nl random cortisol
- f/u UA
- observe VSS
Presumed TAQUERIA suspect� volume contraction
- IVF and trend Cr/1.8 on admission 1.6 this morning>> 1.2
-Continue to trend obtained renal and bladder ultrasound which was also normal
- held Ibuprofen, Frusemide
Hypothyroid on LT4
nl TSH
Recent poor POs
- check Covid
DVT Px: SCD
Code: Full
Obs TLM
Case dw Son at bed side again this morning April 14
Anticipated Discharge: Today
Subjective/Interval History
-
Date of Service: April 15, 2023
Was able to tolerate some flakes of cereal and also soda yesterday states that she is afraid to move her bowels through her son the assembly member because she is laying in bed she denies any present nausea denies headache there is no evidence of any
respiratory distress/son related to her that we found that she may have a small pneumonia in her left lung probably viral and will be self-limited and will try and get out of bed today for a discharge plan later today with home health.
Objective Data
-
Labs:
Laboratory Results
04/15/23
05:25
WBC 5.8
Hgb 8.3 L
Hct 24.9 L
Plt Count 159
Sodium 142
Potassium 4.0
Chloride 114 H
Carbon Dioxide 22
BUN 45 H
Creatinine 1.2 H
Glucose 72
Calcium 8.5
Vital Signs:
Vital Signs
Temp Pulse Resp BP Pulse Ox
97.7 F 67 14 141/101 97
04/15/23 07:58 04/15/23 07:58 04/15/23 07:58 04/15/23 07:58 04/15/23 07:58
I&O
04/14/23 04/15/23 04/16/23
06:59 06:59 06:59
Intake Total 2039 / 2039
Output Total 1200 / 1200
Balance 840 / 840
Review of Systems
-
History Source: Patient
All other systems: Reviewed and negative
Constitutional: Reports Fatigue and Weakness
EENT: Reports No Symptoms Reported
Respiratory: Reports No Symptoms
Cardiac: Reports No Symptoms
Abdomen/GI: Reports Abdominal Pain (Some epigastric discomfort)
Physical Exam
-
General: Well Developed
HEENT: Normocephalic
Respiratory: Clear to Auscultation and Crackles (Left base)
Cardiac: Regular Rhythm
GI: Soft, Normal Bowel Sounds and Tender (Mildly tender epigastrium)
Skin: Warm and IV Access / Catheter Site
Neuro: Awake, Alert and Oriented
Data Reviewed
-
Total Time Spent with Patient (in minutes): 56
Medical Tests (Nuc Med, Echo etc): Report Reviewed by me (2D echocardiogram results reviewed and compared to July 2022 and unchanged with 65% EF/mild MR)
Labs: Labs Reviewed by me (Creatinine down to 1.2)
--- NOTE | 2023-04-15 08:30 | W.DS.TRANS ---
DC Summary - Nurse Practitioner Home Assessments
-
Discharge Instructions:
Discharge Diagnosis/Procedures Witnessed syncope
In relation to dehydration and acute kidney
injury
Left lower lobe pneumonia presumed viral
Diet No restrictions
Activity As tolerated,With Walker
Driving Restrictions As prior to admission
Other Services VN,PT,OT
Instructions:
Stand-Alone Forms:
Changes to Home Medications: Yes
Discharge Medications:
DC Medications w/original date entered in [employer]
cholecalciferol (vitamin D3) 25 mcg (1,000 unit) tablet (Vitamin D3) 25 mcg PO DAILY Supplement 04/13/23
furosemide 20 mg tablet 20 mg PO DAILY Fluid Retention/Swelling 04/13/23
ibuprofen 800 mg tablet 800 mg PO DAILY Pain 04/13/23
levothyroxine 75 mcg tablet 75 mcg PO DAILY Thyroid 04/13/23
ebotrmtk-jvcx-esyy 8 mg-folic 400 mcg-K 50 mcg-lutein 300 mcg tablet (Centrum Silver Women) 1 tab PO DAILY Supplement 04/13/23
prednisone 1 mg tablet 1 mg PO SA Anti-Inflammatory 04/13/23
red yeast rice 600 mg tablet 1,200 mg PO DAILY High Cholesterol 04/13/23
Home Medication Changes
Stop ibuprofen
Pending Results: No
[2023-04-15] MEDS: LASIX 20 MG PO (08:59)
[2023-04-15] MEDS: SYNTHROID 75 MCG PO (09:00)
[2023-04-15] MEDS: VIBRAMYCIN PO (09:11)
--- NOTE | 2023-04-15 09:55 | CM ---
Reviewed the chart notes and spoke with the patient's son at the bedside. Son informed that the patient's stay was changed from observational status to inpatient. The patient's son will transport the patient home today. Discussed VN agencies.
Son selected VN. Referral sent via [facility]. CM continues to be available to patient/family and is monitoring medical plan for needs at discharge.
Plan: Discharge to home with VN services today.
[2023-04-15 12:30] VITALS: BP 150/57; PULSE 60; O2SAT 100
--- NOTE | 2023-04-15 12:38 | VNURNOTE ---
Home Health Liaison met with patient's son Edward at 1200 to discuss [facility] nurse/therapy, visits, schedule and homebound status. Edward is agreeable and understands that visits at home will be 2-3 x per week to assess and teach medical management.
[facility] brochure provided with contact information. Edward is aware that [facility] will contact them for start of care in 1-2 days after discharge from .
[facility] referral has been accepted in [facility].
[2023-04-15 12:40] VITALS: PULSE 60; O2SAT 100
--- NOTE | 2023-04-15 13:28 | W.DCSUMMARY ---
Discharge Summary
Discharge Data
Date of Admission: 04/15/23
Date of Discharge: 04/15/23
Total time spent discharging patient (in min): 45
-
Pending Results: No
Hospital Course
87-year-old female with past medical history of ruptured cerebral aneurysm clipping with underlying osteoporosis rheumatoid arthritis hypothyroidism was witnessed to have a period of unresponsiveness witnessed by her son while sitting down to eat a
meal. Patient had apparently been having days of poor appetite and stomach issues the when this episode also exhibited some unusual eye movements and or gaze deviation and shaking movements of the tongue there is no unusual eye movements or gaze
deviation of note and shaking movements tongue or biting was not present and there is no incontinence or bowel dysfunction noted. Of unresponsiveness lasted approximate 10 minutes and then she returned to her baseline although was noted to have on
EMS arrival BP as low as 89 given fluids and feels she was transported to the ED and she was found to be hypothermic on arrival a CT of the head without contrast did not show any abnormality other than left-sided hypodensity and encephalomalacia in
the left temporal lobe related to her previous insult of acute prior hemorrhage from a ruptured cerebral aneurysm. Initial impression was that of a likely episode of vasovagal syncope in relation to dehydration as patient did exhibit metabolic
abnormalities consistent with acute kidney injury with elevated creatinine of 1.9 above her baseline about 1.1 she was admitted placed on IV hydration she underwent COVID swab testing that was negative along with influenza to be negative
She was seen in consultation by the neurology service and and the cardiology service
Troponin levels remained stable and normal EKG showing right bundle branch block unchanged from prior and cardiac monitoring status throughout the length of admission unremarkable. Hypothermia resolved within the first 18 hours of after admission
it was felt that the patient is possibly suffering from a viral illness and a CT scan of the abdomen pelvis due to continued abdominal discomfort did not show any abnormality although did show left basilar atelectasis and questionable inflammatory
infiltrate in the left base a procalcitonin proved normal TSH and random cortisol were normal as well as a follow-up urinalysis. An echocardiogram was performed showed an EF of 70% with diastolic function indeterminate with mild posterior
hypertrophy in comparison to her previous echo done on July 2022 was reviewed and no significant change cardiology was of the opinion as was the neurology of a vasovagal event possibly in relation to hypovolemic volume losses in the setting of a
viral illness.
She had resolution of acute kidney injury with IV hydration and that was discontinued we also held her ibuprofen presentation she had been taken and at time of discharge will be continued be held she resume prior dosage of furosemide she had been
taken at discharge.
After 8 assessment by physical therapy department she was able to perform all mobility with supervision to an minimal amount of assistance and no loss of balance but remained weak with recommendation for home health and 24-hour supervision we made
arrangements with case management for follow-up with [facility]
Discharge Plan
-
Patient Disposition: Home (Routine Discharge)
Discharge Diagnosis/Procedures: Witnessed syncope
In relation to dehydration and acute kidney injury
Left lower lobe pneumonia presumed viral
Diet: No restrictions
Activity: As tolerated and With Walker
Driving Restrictions: As prior to admission
Other Services: [facility], PT and OT
Referrals:
Sloane Lugo MD [Family Provider] - in less than 1 week
Prescriptions:
Continued
levothyroxine 75 mcg tablet
75 mcg PO DAILY
prednisone 1 mg tablet
1 mg PO SA
furosemide 20 mg tablet
20 mg PO DAILY
cholecalciferol (vitamin D3) [Vitamin D3] 25 mcg (1,000 unit) Tablet
25 mcg PO DAILY
Centrum Silver Women 8 mg iron-400 mcg-50 mcg Tablet
1 tab PO DAILY
red yeast rice 600 mg Tablet
1,200 mg PO DAILY
Discontinued
ibuprofen 800 mg tablet
800 mg PO DAILY
Discharge Orders:
Discharge Patient (As Directed); Ordered 04/15/23
Ordered By: Markus Cortez
--- NOTE | 2023-04-15 13:59 | W.PN.CARDCBS ---
Today's Communication / Plan
-
TAQUERIA on admission improved with IVF
Agree with resuming prior Lasix 20 mg PO daily
Would repeat BMP in 1-2 weeks
Impression / Plan
-
PCP: Dr. Sloane Lugo
Cardiology: Dr. Nvaa, last seen 04/02/22
Impression:
Admitted with loss of consciousness 04/13/23
TAQUERIA
Hypothermia on admission
cRBBB
Moderate MR and mild by echo 07/2022
h/o HTN
Anemia, acute on chronic
RA
Hypothyroidism
h/o cerebral aneurysm with clipping 03/2012
Echo 07/24/22: EF 55-60%, mod MR, mild and mild aortic regurgitation, small pericardial effusion
Patient came to [facility] yesterday after a witnessed episode of loss of consciousness and cardiology has been consulted. Patient lives at home with her son and he was present for this episode. Patient's son describes that patient was feeling unwell for
the last week described as fullness in her abdomen and no appetite so she was not eating and drinking. Patient's son tried to gently force her to eat and she vomited with that. No chest pain or SOB. Then yesterday patient was at home and was seated
at the dining table and trying to eat and drink some juice, she was holding the cup in her hand and looking at her son, but not responding. Her son called her name and her eyes were open, but she was not speaking. She eventually slumped forward. Her
son called 911 and when paramedics arrived she was hypotensive at 89/39. In the ER she had TAQUERIA with Cre 1.8 and a previous baseline was 1.05 in 03/2023. Patient also noted to have a baseline Hgb of 9.9 in 03/2023 and after IVFs this admission her Hgb
is down to 8.4. No recurrence of syncope. Patient's son says that the only other episode of loss of consciousness that patient has had was during cerebral aneurysm clipping remotely. Also, patient was hypothermic on arrival to [facility] and COVID
negative, but blood cultures pending.
-Patient was not orthostatic by VS in the ER, but was initially hypotensive in the ER. Hypotension has improved with IVFs. Patient's episode sounds like syncope probably due to orthostasis and hypovolemia from poor PO intake and vomiting in the days
leading up to this episode.
Plan:
-Resting comfortably
-Maintaining NSR on tele
-Echo unchanged from prior
-TAQUERIA on admission improved with IVF
-Agree with resuming prior Lasix 20 mg PO daily
-Would repeat BMP in 1-2 weeks
-Stable cardiac status
Progress Note - Marksmanship Instructor
Subjective
Date of Service: April 15, 2023
NAOE. Resting comfortably this AM.
Objective
Labs:
04/15/23 05:25
04/15/23 05:25
Labs
Hgb 8.3 g/dL (12.0-16.0) L 04/15/23 05:25
Hct 24.9 % (37.0-47.0) L 04/15/23 05:25
Plt Count 159 10^3/uL (130-400) 04/15/23 05:25
PT 14.0 Sec (11.4-14.6) 04/13/23 18:22
INR 1.10 04/13/23 18:22
Sodium 142 mmol/L (135-145) 04/15/23 05:25
Potassium 4.0 mmol/L (3.5-5.1) 04/15/23 05:25
BUN 45 mg/dl (7-17) H 04/15/23 05:25
Creatinine 1.2 mg/dL (0.6-1.0) H 04/15/23 05:25
Glucose 72 mg/dl (70-99) 04/15/23 05:25
Troponins
04/13/23
20:48
Troponin I < 0.012
Vital Signs and I&O:
Vital Signs
Temp Pulse Resp BP Pulse Ox
97.7 F 67 14 141/101 97
04/15/23 07:58 04/15/23 07:58 04/15/23 07:58 04/15/23 07:58 04/15/23 07:58
Vital Signs
Temp Pulse Resp BP Pulse Ox
97.7 F 67 14 141/101 97
04/15/23 07:58 04/15/23 07:58 04/15/23 07:58 04/15/23 07:58 04/15/23 07:58
Intake & Output
04/13/23 04/14/23 04/15/23 04/16/23
06:59 06:59 06:59 06:59
Intake Total 0 / 0
Output Total 1200 / 1200
Balance 840 / 840
Physical Exam
Physical Exam
Gen: NAD, AA
HEENT: NC/AT, sclera anicteric
Neck: No JVD
CV: RRR, NL s1/s2
Lungs: CTAB
Abd: S/ND
Ext: No LE edema
Skin: Warm, dry
Neuro: Non-focal
== END 2023-04-15 14:15 | disposition home health service (06) | DRG 682 ==
LOC: 2 SOUTH 07:08
PROVIDERS: Physician Assistant; ADMITTING PHYSICIAN Internal Medicine; ATTENDING PHYSICIAN Internal Medicine; CONSULT PHYSICIAN Student in an Organized Health Care Education/Training Program; EMERGENCY PHYSICIAN Student in an Organized Health Care Education/Training Program; FAMILY PHYSICIAN Family Medicine; OTHER PHYSICIAN Internal Medicine Cardiovascular Disease
DX: N17.9 Acute kidney failure, unspecified (principal); J12.9 Viral pneumonia, unspecified; I31.39 Other pericardial effusion (noninflammatory); J98.11 Atelectasis; R55 Syncope and collapse; R63.0 Anorexia; I95.9 Hypotension, unspecified; E03.9 Hypothyroidism, unspecified; E86.0 Dehydration; R01.1 Cardiac murmur, unspecified; I10 Essential (primary) hypertension; R62.7 Adult failure to thrive; E78.00 Pure hypercholesterolemia, unspecified; G93.89 Other specified disorders of brain; R68.0 Hypothermia, not associated with low environmental temperature; I45.10 Unspecified right bundle-branch block; M06.9 Rheumatoid arthritis, unspecified; D64.9 Anemia, unspecified; M81.0 Age-related osteoporosis without current pathological fracture; Z96.653 Presence of artificial knee joint, bilateral; Z79.890 Hormone replacement therapy; Z79.52 Long term (current) use of systemic steroids; Z11.52 Encounter for screening for COVID-19
CPT/HCPCS: 70450; 71046; 74176; 76770; 80048; 80053; 81003; 82533; 82805; 83605; 83690; 84145; 84443; 84484; 85025; 85027; 85610; 87040; 87502; 87811; 93005; 93306; 96360; 97162; 97166; 99285

== ENCOUNTER 2023-04-16 20:44 | Inpatient (IN) | payer OTHER, SELFPAY ==
[2023-04-16] VITALS (28 sets, daily range): BP systolic 61–127; BP diastolic 21–65
[2023-04-16 17:34] LABS: Hematocrit 32.8 % (37.0-47.0); Mean Corp Hgb Conc. 33.5 g/dL (33.0-37.0); Mean Corpuscular Hgb 31.7 pg (27.0-31.0); Mean Corpuscular Volume 94.5 fL (81.0-99.0); Mean Platelet Volume 10.7 fL (7.4-10.4); Platelet Count 226 10^3/uL (130-400); Red Blood Cell Count 3.47 10^6/uL (4.20-5.40); Red Cell Dist. Width 15.6 % (11.5-14.5); White Blood Cell Count 2.4 10^3/uL (4.8-10.8)
[2023-04-16 17:51] LABS: Absolute Neutrophils -Man Diff 1.7 10^3/uL (1.4-6.5); Band Neutrophils 16 % (0-3); Lymphocytes 23 % (20-51); Monocytes 3 % (2-9); Normal RBC Morphology Yes; Platelets Checked Yes; Segmented Neutrophils 58 % (42-75); Total Cells Counted 100
--- NOTE | 2023-04-16 17:51 | ED.GENMED ---
History of Present Illness
General
Chief Complaint: Abdominal Symptoms
Source: family
Time Seen by Provider: 04/16/23 17:31
Travel History
Have you had any contact with someone who has COVID-19?: No
Do you have any symptoms of coronavirus? Fever > 100 degrees, chills, cough, shortness of breath, sore throat, loss of taste or smell, muscle aches, or headache?: No
History of Present Illness
History of Present Illness:
87-year-old hqq-Qftatie-fldttyxh lady brought to the emergency room for evaluation of abdominal pain and vomiting. Patient was actually hospitalized here at [facility] and discharged yesterday. That admission was prompted by a period of being
unresponsive. She was seen here in the emergency room and was initially hypotensive. She was also noted to be hypothermic. After fluid resuscitation and warming she seemed improved. No obvious cause of her presentation was discovered during the
hospitalization. Patient currently is moaning due to abdominal pain which her son states is lower abdominal pain. It got worse after she ate some ice cream today. She has been moving her bowels. Unknown if she had any black or bloody stool.
Patient was taking 600 mg of ibuprofen a day for joint pain. She also takes prednisone once a week and as needed for joint pain. Patient's son states that she is on material which potentially look like coffee grounds.
Phy Exam
Physical Exam
Physical Exam:
General: Awake, Alert, appears uncomfortable, cachectic
Vitals: Hypothermic, hypotensive, bradycardic
Head: Atraumatic
Eyes: Pupils equal, EOMI
Throat: Airway intact, no exudates, dry mucosa
Neck: Trachea midline
Lungs: Clear and equal b/l
Heart: Regular rate, no murmurs
Abd: Soft, diffusely tender, No pulsatile mass
Neuro: Nonfocal
Skin: Warm, dry, no rash
Extremities: pulses equal b/l, no edema
Course
Orders/Labs/Results
Orders:
Orders
04/16/23 17:26
Complete Blood Count/With Diff Urgent
Comprehensive Metabolic Panel Urgent
Lipase Urgent
Manual Differential Urgent
04/16/23 17:45
EKG [Electrocardiogram (*1)] Urgent
Reason for Study: Abdominal Pain
EKG- Treatment ONCE
04/16/23 17:46
Hydrocortisone Sod Succinate [Solu-Cortef] 100 mg .ROUTE .STK-MED ONE
04/16/23 17:48
Straight cath- Treatment ONCE
0.9% Sodium Chloride 1000 ml [Nss] 1,000 ml IV BOLUS
Hydrocortisone Sod Succinate [Solu-Cortef] 100 mg IV NOW STA
04/16/23 17:49
CR Chest Portable - 1 View Urgent
Comment:
Reason For Exam: hypotension
Reason Study Needs to be Portable: Patient Unstable
04/16/23 17:55
CT Abd/pelvis W Iv Cont Urgent
Comment:
Reason For Exam: severe abdominal pain
04/16/23 18:00
Procalcitonin Urgent
PCT Algorithmm Indication: Sepsis
Blood Culture Q30M
SHELLY Source: Blood/Venous
Specimen Description:
04/16/23 18:01
Type+Screen Urgent
Lactic Acid Q4H
Comment: CANCEL 2nd LACTIC ACID IF 1st LACTIC ACID IS LESS THAN 2
Troponin I Urgent
04/16/23 18:23
Blood Culture Q30M
SHELLY Source: Blood/Venous
Specimen Description:
04/16/23 18:38
Ondansetron Injectable [Zofran] 4 mg .ROUTE .STK-MED ONE
04/16/23 18:39
Pantoprazole [Protonix IV] 80 mg .ROUTE .STK-MED ONE
04/16/23 18:52
UA Reflex to Culture [Urinalysis Reflex To Culture] Urgent
Date Specimen was Collected: 04/16/23
Time Specimen was Collected: 18:50
Comment: straight cath
Urine Microscopic Reflex Cult Urgent
Urine Culture Urgent
SHELLY Source: U
Specimen Description:
Date Specimen was Collected: 04/16/23
Time Specimen was Collected: 18:50
04/16/23 19:30
Cefepime HCl [Maxipime] 2,000 mg IV NOW STA
04/16/23 19:40
0.9% Sodium Chloride 500 ml [Nss] 500 ml IV BOLUS
04/16/23 20:11
Admit/Transfer Patient As Directed
Co-Sign Provider:
Level of Care: Inpatient admission
Assign to:: ICU
Physician / Group: grzegorz
Diagnosis: sepsis
Reason for Hospitalization: sepsis
Expected length of stay greater than two midnights?: Yes
ELOS- Estimated Length of Stay in days: 2
I certify the patient meets the requirements for IP care: Yes
04/16/23 20:12
Code Status As Directed
Resuscitation Status: Full Code
04/16/23 22:00
Lactic Acid Q4H
Comment: CANCEL 2nd LACTIC ACID IF 1st LACTIC ACID IS LESS THAN 2
Abnormal Lab Results
04/16/23 04/16/23 04/16/23
17:26 18:00 18:52
WBC 2.4 L* 10^3/uL
(4.8-10.8)
RBC 3.47 L 10^6/uL
(4.20-5.40)
Hgb 11.0 L D g/dL
(12.0-16.0)
Hct 32.8 L %
(37.0-47.0)
MCH 31.7 H pg
(27.0-31.0)
RDW 15.6 H %
(11.5-14.5)
MPV 10.7 H fL
(7.4-10.4)
Band Neutrophils 16 H %
(0-3)
Chloride 111 H mmol/L
(98-107)
BUN 37 H mg/dl
(7-17)
Creatinine 1.4 H mg/dL
(0.6-1.0)
Glucose 163 H mg/dl
(70-99)
Alkaline Phosphatase 140 H U/L
(38-126)
Total Protein 6.2 L g/dl
(6.3-8.2)
Albumin 3.3 L g/dl
(3.5-5.0)
Lipase 447 H U/L
(23-300)
Procalcitonin 0.53 H ng/ml
(0.0-0.25)
Urine Ketones Trace A
(Negative)
Urine Bilirubin 1+ A
(Negative)
Leukocyte Esterase Rfl Trace A
(Negative)
Urine Bacteria (Reflex) Moderate A
(Negative)
04/16/23 17:26
04/16/23 17:26
Vital Signs
Initial and Last Documented VS:
Initial Vital Signs
Pulse Resp BP Pulse Ox
57 24 73/40 99
04/16/23 17:18 04/16/23 17:18 04/16/23 17:18 04/16/23 17:18
Last Documented Vital Signs
Temp Pulse Resp BP Pulse Ox
94 F L 114 21 113/53 97
04/16/23 21:38 04/16/23 20:46 04/16/23 20:46 04/16/23 20:44 04/16/23 20:46
MDM/Problems Addressed
Differential Diagnosis Includes:
Sepsis, adrenal insufficiency, anemia with hemorrhagic shock, electrolyte abnormality
MDM/Problems Addressed:
Patient found to be quite hypothermic here. This was initially treated with warm blankets and then a Elijah hugger. Patient was hypotensive and so aggressive IV fluid resuscitation was provided. Concern for sepsis so broad-spectrum antibiotics were
given. Hydrocortisone was given IV in case the patient's abnormal vital signs are related to adrenal suppression from her prednisone use. Patient's blood pressure did respond ultimately to IV fluids. Body temperature remaining in the 94 range.
Patient remitted to the intensive care unit.
Chronic conditions affecting care: HTN and Other (Cerebral aneurysm)
Acute Exacerbation and/or Progression of Chronic Illness:
External warming initiated with blankets and then ultimately Elijah hugger. IV fluid resuscitation initiated. Stress dose hydrocortisone given. IV antibiotics given due to elevated Pro-Eladio and possible sepsis.
*Radiology
Radiology exam reviewed: radiology read reviewed
*Pulse Oximetry
Patient hypoxic: no
*EKG
Interpreted by ED Provider?: Yes
Interpretation: abnormal
Heart Rate: 54
Rate: bradycardiac
Rhythm: sinus
QRS Pattern: right bundle branch block
Ischemia: non-specific ST changes
*Multi Slide Machine Tender Interpretation
Rate: bradycardiac
Rhythm: sinus
*Critical Care Note
Total Time (30-74mins, 75-104mins- exclusive of procedures): 40 min
comment:
Critical care statement: A total of 40 minutes of critical care time was provided for this patient. This includes management of unstable vital signs, evaluation of the patient at bedside, reviewing the patient's pertinent medical records, discussion
with consultants, review of old EKGs and review of pertinent medical records. This time with separate from time utilized to perform the aforementioned documented procedures
Patient Management
Social determinants of health affecting care: Strong social support
ED Attending Note
-
Portions of this chart may have been created with voice recognition software.� Occasional wrong word or��sound alike� substitutions may have occurred due to the inherent limitations of voice recognition software.
Discharge Plan
Departure
Patient Disposition: Admit
Date of Disposition: 04/16/23
Time of Disposition: 20:25
Admit to: ICU
Presentation/result/management discussed w/ accepting MD/DO: Hospitalist
Condition: Serious
Discharge Problem:
Hypothermia, Acute hypotension, Leukopenia, Acute renal failure (ARF)
Interventions
Interventions:
*Risk Screen - Suicide Last Done: 04/16/23 18:08
*General Assessment Last Done: 04/16/23 17:18
*Neglect/Abuse Screening Last Done: 04/16/23 18:08
ED- Fall Risk Assessment Last Done: 04/16/23 18:08
*ED COVID-19 Vaccine History Last Done: 04/16/23 17:18
IQ-Kvnkvu-Njanjfhghi Assessment Last Done: 04/16/23 18:08
[2023-04-16 17:53] LABS: ALT (SGPT) 21 U/L (0-35); AST (SGOT) 35 U/L (14-36); Albumin 3.3 g/dl (3.5-5.0); Alkaline Phosphatase 140 U/L (38-126); Blood Urea Nitrogen 37 mg/dl (7-17); Calcium 9.7 mg/dl (8.4-10.2); Carbon Dioxide 23 mmol/L (22-30); Chloride 111 mmol/L (98-107); Glucose 163 mg/dl (70-99); Lipase 447 U/L (23-300); Potassium 3.6 mmol/L (3.5-5.1); Sodium 140 mmol/L (135-145); Total Bilirubin 0.4 mg/dl (0.2-1.3); Total Protein 6.2 g/dl (6.3-8.2); eGFR 36.41
[2023-04-16] MEDS: SOLU-CORTEF 100 MG IV (17:55)
[2023-04-16] MEDS: NSS 1000 IV (17:55)
[2023-04-16 18:38] LABS: Troponin I 0.016 ng/ml
[2023-04-16 18:46] LABS: Procalcitonin 0.53 ng/ml (0.0-0.25)
[2023-04-16 19:47] LABS: Urine Albumin Trace (Neg - Trace); Urine Bilirubin 1+ (Negative); Urine Character Clear (Clear); Urine Color Yellow; Urine Glucose Negative (Negative); Urine Ketone Trace (Negative); Urine Leukocyte Trace (Negative); Urine Nitrite Negative (Negative); Urine Occult Blood Negative (Negative); Urine Urobilinogen Negative (Neg - 1+)
[2023-04-16 19:55] LABS: Urine Bacteria Moderate (Negative); Urine Hyaline Cast >15 /LPF (0-2); Urine Red Blood Cell 0-2 /HPF (0-2); Urine White Cell 0-2 /HPF (0-5)
--- NOTE | 2023-04-16 20:01 | EDRN ---
patient placed on Elijah Hugger due to decreased temp; Er doctor aware
--- NOTE | 2023-04-16 20:16 | HPS.HSE ---
Addendum entered and electronically signed by Mp Robertson MD 04/16/23 22:28:
CT abdomen shows shock bowel. Discussed with surgery risk prevention engineer. They recommend continuing Abx and IV fluid resuscitation and levophed if pressor needed (avoiding kathie and vasopressin).
Original Note:
Family Physician
-
Family Physician: Sloane Lugo MD
Chief Complaint
-
abdominal pain, vomiting
History of Present Illness
87-year-old female with past medical history of ruptured cerebral aneurysm clipping, osteoporosis, rheumatoid arthritis, hypothyroidism, hyperlipidemia, presenting with abdominal pain and nausea and vomiting. History obtained from patient's son.
Patient was discharged yesterday after being admitted for syncopal episode. When she arrived she was hypotensive and hypothermic. It was thought that her symptoms were vasovagal since she had hypotension and TAQUERIA treated with IV fluids.
Hypothermia resolved and was thought the patient a viral illness. CT scan of the abdomen pelvis did not show any abnormality although there was questionable inflammatory infiltrate in the left base. TSH and random cortisol, urinalysis was normal.
Since discharge patient is been complaining of worsening abdominal pain after she ate some ice cream today. Abdominal pain has been ongoing throughout the past hospitalization. Abdominal pain is located across her bellybutton. She threw up a few
times. No blood noticed in the vomit.. She has also been having trouble with difficulty swallowing solids. No diarrhea. Bowel movements are regular without any blood in the stool. She also has been having ongoing shortness of breath. No fever.
She has been mentally alert.
No smoking or alcohol use.
Medical History
Past Medical History
Past Medical History: Reports Other (ruptured cerebral aneurysm clipping, osteoporosis, rheumatoid arthritis, hypothyroidism, hyperlipidemia,)
Past Surgical History: Reports Other (cerebral aneurysm clipping)
Social History
Tobacco: Non-smoker
Alcohol: None
Drug: None
Family History
Family History: Not pertinent
Allergies / Home Medications
Allergies reflects when Allergies were last updated in [employer].
Home Medications with original date entered in [employer]
Allergy/Medication List:
Allergies
Allergy/AdvReac Type Severity Reaction Status Date / Time
No Known Allergies Allergy Verified 04/13/23 17:15
Home Medications
cholecalciferol (vitamin D3) 25 mcg (1,000 unit) tablet (Vitamin D3) 25 mcg PO DAILY Supplement 04/13/23
furosemide 20 mg tablet 20 mg PO DAILY Fluid Retention/Swelling 04/13/23
levothyroxine 75 mcg tablet 75 mcg PO DAILY Thyroid 04/13/23
aidignms-qrnl-ejfk 8 mg-folic 400 mcg-K 50 mcg-lutein 300 mcg tablet (Centrum Silver Women) 1 tab PO DAILY Supplement 04/13/23
prednisone 1 mg tablet 1 mg PO SA Anti-Inflammatory 04/13/23
red yeast rice 600 mg tablet 1,200 mg PO DAILY High Cholesterol 04/13/23
Review of Systems
-
History Source: Patient
A 12 point ROS was completed and negative except as noted: Yes
Constitutional: Reports No Symptoms
EENT: Reports No Symptoms
Respiratory: Reports No Symptoms
Cardiac: Reports No Symptoms
Abdomen/GI: Reports See HPI
: Reports No Symptoms
Musculoskeletal: Reports No Symptoms
Skin: Reports No Symptoms
Neurological: Reports No Symptoms
Endocrine: Reports No Symptoms
Hematologic/Lymphatic: Reports No Symptoms
Psych: Reports No Symptoms
Physical Exam
Vital Signs
Vital Signs
Temp Pulse Resp BP Pulse Ox
93.6 F L 60 26 94/38 99
04/16/23 20:00 04/16/23 19:40 04/16/23 19:40 04/16/23 19:30 04/16/23 18:30
Physical Exam
General: Well Developed, Well Nourished and No Apparent Distress
HEENT: NormoCephalic, Moist mucous membranes and Atraumatic
Respiratory: Clear
Cardiac: S1/S2 and Regular Rhythm; No Murmur or Rub
GI: Soft, Non Distended, Normal Bowel Sounds and Tender; No Organomegaly
Rectal: Deferred by Provider
Musculoskeletal: No Clubbing, No Cyanosis and No Edema
Skin: No Rash
Neuro: Nonfocal/grossly intact
Laboratory Results
-
04/16/23 17:26
04/16/23 17:26
Laboratory Results
Lactic Acid 2.0 mmol/L (0.7-2.0) 04/16/23 18:01
Total Bilirubin 0.4 mg/dl (0.2-1.3) 04/16/23 17:26
AST 35 U/L (14-36) 04/16/23 17:26
ALT 21 U/L (0-35) 04/16/23 17:26
Alkaline Phosphatase 140 U/L (38-126) H 04/16/23 17:26
Troponin I 0.016 ng/ml 04/16/23 18:01
Lipase 447 U/L (23-300) H 04/16/23 17:26
Data Reviewed
-
Lab Data: Labs Reviewed by me
Old Records: Reviewed
Impression/Plan
-
IMPRESSION:
PLAN:
# Severe abdominal pain/recurrent sepsis (hypothermia, leukopenia, hypotension) unclear source
# Recent hypothermia/syncopal episode
-Chest x-ray shows improved aeration of the left lower lung field suggesting improved pneumonia
-Urinalysis unremarkable
-Procal elevated
-Bands present
-Repeat CT abdomen pelvis with IV contrast this time
-Check blood cultures
-Requiring Elijah hugger
-IV fluids
-Vancomycin/Zosyn
-100 IV hydrocortisone given although no evidence of adrenal insufficiency
-Hold Lasix
-Recent echocardiogram without any significant change
# Acute kidney injury
-Hold Lasix
-IV fluids
# Dysphagia to solids
-Consider GI consult after initial workup
History of ruptured cerebral aneurysm status post clipping
Osteoporosis
Rheumatoid arthritis
Hypothyroidism
-Continue levothyroxine
Hyperlipidemia
Fluid retention
-Hold Lasix
Full code
DVT prophylaxis�heparin
N.p.o.
[2023-04-16] MEDS: MAXIPIME 2000 MG IV (20:49)
[2023-04-16] MEDS: VANCOCIN 300 MG IV (22:44)
[2023-04-16] MEDS: VANCOCIN 300 ML IV (22:44)
[2023-04-16] MEDS: NSS 500 IV (23:59)
[2023-04-17] VITALS (101 sets, daily range): BP systolic 55–152; BP diastolic 28–132; BMI 20.6
[2023-04-17 01:39] LABS: INR 1.21; PT 15.3 Sec (11.4-14.6)
[2023-04-17 01:40] LABS: APTT 35.3 Sec (23.4-35.0)
[2023-04-17] MEDS: NSS 250 IV ×2 (02:01→05:58)
[2023-04-17] MEDS: NSS 1000 IV ×2 (02:02→10:00)
[2023-04-17] MEDS: ZOSYN 50 IV ×4 (02:36→20:13)
--- NOTE | 2023-04-17 03:13 | PTCARENOTE ---
Received patient from ED, AAOx3, following commands, complaining of pain in abdomen, tender to touch. Son at bedside, patient does not speak pashto, son helping to communicate. Normal sinus, 60s-70s with right bundle branch block. BP soft, 90s/60s,
received 250 ml fluid bolus, started on NSS at 80 mls/hr. BP now 100s/50s. Palpable radial and pedal pulses bilaterally. Normothermic. 95% on room air, lung sounds diminished throughout, bibasilar fine crackles posteriorly. Tachypneic, shallow
breathing. Abdomen slightly distended, round, soft. Hypoactive bowel sounds, no BM this shift. Purewick in place, bladder scanned for 5 mls. Skin intact. PIVs WNL. Hourly rounding and patient safety checks ongoing.
[2023-04-17] MEDS: ZOFRAN 4 MG IV (05:25)
[2023-04-17] MEDS: LEVOPHED 250 IV ×5 (06:08→21:53)
--- NOTE | 2023-04-17 06:10 | PTCARENOTE ---
Patients blood pressure began dropping, 60s-70s/30s-40s. Patient threw up twice, small amount of oneal/brown clear liquid. Moris Membreno DECK MOLDER to bedside, received 250 mls NSS bolus. Blood pressure did not improve, started on norepinephrine. Now
106/41. Monitoring and safety checks ongoing.
[2023-04-17] MEDS: DILAUDID 0.5 MG IV ×2 (06:17→10:46)
--- NOTE | 2023-04-17 06:23 | W.PN.HOSP.TC ---
Today's Communication/Plan
-
Start pressors this morning as remains hypotensive
Maintain IV fluids
Continue present course of antibiotics
If leukopenia continues in the face of bandemia we will consult ID
GI and surgery consult pending
Assessment / Plan
Assessment / Plan
87-year-old female with past medical history of ruptured cerebral aneurysm clipping, osteoporosis, rheumatoid arthritis, hypothyroidism, hyperlipidemia, presenting with abdominal pain and nausea and vomiting.� History obtained from patient's son.
Patient was discharged April 14 after being admitted for syncopal episode.� When she arrived she was hypotensive and hypothermic.� It was thought that her symptoms were vasovagal since she had hypotension and TAQUERIA treated with IV fluids.�
Hypothermia resolved and was thought the patient a viral illness.� Procalcitonin at the time of discharge was normal. CT scan of the abdomen pelvis did not show any abnormality although there was questionable inflammatory infiltrate in the left
base.� TSH and random cortisol, urinalysis was normal.
Since discharge patient is been complaining of worsening abdominal pain after she ate some ice cream today.� Abdominal pain has been ongoing throughout the past hospitalization.� Abdominal pain is located across her bellybutton.� She threw up a few
times.� No blood noticed in the vomit.. She has also been having trouble with difficulty swallowing solids.� No diarrhea.� Bowel movements are regular without any blood in the stool.� She also has been having ongoing shortness of breath.� No fever.�
She has been mentally alert. 2 sons knowledge she has never had a colonoscopy
No smoking or alcohol use.
# Severe abdominal pain/recurrent sepsis (hypothermia, leukopenia, hypotension) unclear source
# Recent hypothermia/syncopal episode
-Chest x-ray shows improved aeration of the left lower lung field suggesting improved pneumonia
-Urinalysis unremarkable
-Procal elevated/close normal 2/
-Bands present/leukopenic
-Repeat CT abdomen pelvis with IV contrast this time consistent with suspected shock bowel in the areas of the small kristin
-Surgical consult placed l
-Check blood cultures
-Requiring Elijah hugger
-IV fluids/pressor support as needed
-Vancomycin/Zosyn
-100 IV hydrocortisone given although no evidence of adrenal insufficiency/had been on maintenance prednisone 1 mg
-Hold Lasix
-Recent echocardiogram without any significant change
#Hypothermia on presentation
-Similar to 3 days ago when had syncope
-Cortisol and TSH within normal limits done
-In relation to underlying sepsis and ischemic bowel
# Acute kidney injury
-Had initial course of TAQUERIA 3 days ago that resolved with IV fluids
-Hold Lasix
-IV fluids
# Dysphagia to solids
-Discussed knowledge never had colonoscopy or endoscopy.
-GI consulted
History of ruptured cerebral aneurysm status post clipping
Osteoporosis
Rheumatoid arthritis
Hypothyroidism
-Continue levothyroxine
Hyperlipidemia
Fluid retention
-Hold Lasix
Full code
DVT prophylaxis�heparin
N.p.o.
Anticipated Discharge: > 48 hours
Subjective/Interval History
-
Date of Service: April 17, 2023
With continued and severe abdominal pain initially hypothermic improved it was initially also hypotensive improved with fluids but now again hypotensive and now just placed on pressors/son at bedside describes about 1 day of patient doing okay after
her recent discharge and then developed increasing abdominal pain described what may have been a coffee-ground emesis but not sure had bowel movement that was not bloody.
Objective Data
-
Labs:
Laboratory Results
04/17/23 04/17/23
01:13 06:19
WBC Pending
Hgb Pending
Hct Pending
Plt Count Pending
PT 15.3 H
INR 1.21
APTT 35.3 H
Sodium Pending
Potassium Pending
Chloride Pending
Carbon Dioxide Pending
BUN Pending
Creatinine Pending
Glucose Pending
Calcium Pending
Total Bilirubin Pending
AST Pending
ALT Pending
Alkaline Phosphatase Pending
Vital Signs:
Vital Signs
Temp Pulse Resp BP Pulse Ox
98.6 F 69 21 64/31 98
04/17/23 03:28 04/17/23 06:05 04/17/23 06:05 04/17/23 06:05 04/17/23 05:34
I&O
04/15/23 04/16/23 04/17/23
06:59 06:59 06:59
Intake Total 1879
Balance 1879
Review of Systems
-
Unable to obtain full review of systems at this time due to: Language Barrier
History Source: Patient and Family
Constitutional: Reports Fatigue and Weakness
EENT: Reports No Symptoms Reported
Respiratory: Reports No Symptoms
Cardiac: Reports No Symptoms
Abdomen/GI: Reports Abdominal Pain, Nausea and Vomiting
Physical Exam
-
General: Appears in Distress
HEENT: Normocephalic
Respiratory: Clear to Auscultation
Cardiac: Regular Rhythm
GI: Tender; Negative Normal Bowel Sounds
Skin: Warm
Neuro: Awake, Alert, Oriented and AO x 3
Psych: Anxious
Data Reviewed
-
Total Time Spent with Patient (in minutes): 65
CT Scan: Image personally visualized and interpreted and Report Reviewed by me (Areas of small bowel ischemia with bowel wall thickening/prior described pneumonic infiltrate now resolved)
Labs: Labs Reviewed by me
[2023-04-17 06:39] LABS: Hematocrit 32.6 % (37.0-47.0); Hemoglobin 10.5 g/dL (12.0-16.0); Mean Corp Hgb Conc. 32.2 g/dL (33.0-37.0); Mean Corpuscular Hgb 31.4 pg (27.0-31.0); Mean Corpuscular Volume 97.6 fL (81.0-99.0); Mean Platelet Volume 10.8 fL (7.4-10.4); Nucleated Red Blood Cells % 0 %; Platelet Count 225 10^3/uL (130-400); Red Blood Cell Count 3.34 10^6/uL (4.20-5.40); Red Cell Dist. Width 15.8 % (11.5-14.5); White Blood Cell Count 5.3 10^3/uL (4.8-10.8)
[2023-04-17 07:08] LABS: ALT (SGPT) 15 U/L (0-35); AST (SGOT) 30 U/L (14-36); Albumin 2.3 g/dl (3.5-5.0); Alkaline Phosphatase 103 U/L (38-126); Blood Urea Nitrogen 35 mg/dl (7-17); Calcium 8.3 mg/dl (8.4-10.2); Carbon Dioxide 19 mmol/L (22-30); Chloride 119 mmol/L (98-107); Estimated Creatinine Clearance 22 ml/min; Glucose 83 mg/dl (70-99); Potassium 4.4 mmol/L (3.5-5.1); Sodium 143 mmol/L (135-145); Total Bilirubin 0.5 mg/dl (0.2-1.3); Total Protein 4.9 g/dl (6.3-8.2); eGFR 33.52
--- NOTE | 2023-04-17 07:43 | CON.INTV ---
Consultation
Consultation Request
Date/Time Consultation Requested: 04/17/2023-7 AM
Date/Time Consultation Performed: 04/17/2023-7:30 AM
Requesting Provider: Hospitalist
Performing Provider: Dr. Anthony
Reason for Consultation: Severe abdominal pain/ischemic bowel/critical care management
Medical History
-
Chief Complaint: Abdominal pain
History of Present Illness:
87-year-old female with a history of ruptured cerebral aneurysm, osteoporosis, rheumatoid arthritis, hypothyroid and hyperlipidemia presented with abdominal pain noted to have severe intestinal ischemia and box maker paperboard consulted for bowel
ischemia/hypotension/critical care management 04/17/2023. Patient was seen and her son was the antique jewelry repairer as she does not speak Ukrainian. She does not complain of any shortness of breath, chest pain, chest congestion, productive cough but admits to
diffuse abdominal pain. She did not complain of any nausea, weakness or increased leg swelling.
Past Medical History
Past Medical History: None (Hyperlipidemia. Hypothyroid. Osteoporosis. Rheumatoid arthritis-1 mg prednisone weekly. Ruptured cerebral aneurysm status post clipping.)
Social History
Tobacco: Non-smoker
Alcohol: None
Drug: None
Living: With Family
Occupational Exposures: No known asbestos exposure
Environmental Exposures: No known tuberculosis exposure
Family History
Family History: Reviewed & Not Pertinent
Allergies / Home Medications
Allergies
Allergy/AdvReac Type Severity Reaction Status Date / Time
No Known Allergies Allergy Verified 04/13/23 17:15
Home Medications
Medication Instructions Recorded Confirmed Last Taken Type
cholecalciferol (vitamin D3) 25 25 mcg PO DAILY Supplement 04/13/23 04/16/23 04/16/23 History
mcg (1,000 unit) tablet (Vitamin
D3)
furosemide 20 mg tablet 20 mg PO DAILY Fluid 04/13/23 04/16/23 04/16/23 History
Retention/Swelling
levothyroxine 75 mcg tablet 75 mcg PO DAILY Thyroid 02/07/0104/16/23 04/16/23 History
oiiewrpa-yasp-zjaq 8 mg-folic 400 1 tab PO DAILY Supplement 04/13/23 04/16/23 04/16/23 History
mcg-K 50 mcg-lutein 300 mcg tablet
(Centrum Silver Women)
prednisone 1 mg tablet 1 mg PO SA Anti-Inflammatory 04/13/23 04/16/23 04/12/23 History
red yeast rice 600 mg tablet 1,200 mg PO DAILY High Cholesterol 04/13/23 04/16/23 04/16/23 History
Review of Systems
-
Unable to Obtain full review of systems at this time due to: Other (Per HPI)
Vitals / Labs / Diagnostic Testing
Vital Signs
Temp Pulse Resp BP Pulse Ox
98.6 F 69 21 64/31 98
04/17/23 03:28 04/17/23 06:05 04/17/23 06:05 04/17/23 06:05 04/17/23 05:34
Lab Data
04/17/23 06:19
04/17/23 06:19
Laboratory Results
04/17/23
01:13
PT 15.3 H
INR 1.21
APTT 35.3 H
Diagnostic Testing:
Physical Exam
-
Exam:
Well-nourished and well-developed in no apparent distress
HEENT-atraumatic, normocephalic
Neck-supple, no JVD, no bruit
Heart-regular rate and rhythm-no murmurs, rubs or gallops
Chest-clear to auscultation, no wheezes, crackles
Abdomen is distended, tender diffusely, guarding, no rebound
Extremities-no cyanosis, clubbing, edema and good peripheral pulses
Integument-intact, no rashes, lesions or ecchymosis
Neurology-alert and oriented, nonfocal motor and sensory exam
Assessment
-
87-year-old female with a history of ruptured cerebral aneurysm, osteoporosis, rheumatoid arthritis, hypothyroid and hyperlipidemia presented with abdominal pain noted to have severe intestinal ischemia and box maker paperboard consulted for bowel
ischemia/hypotension/critical care management 04/17/2023.
Assessment
Severe abdominal pain-nonocclusive mesenteric ischemia/intestinal ischemia
Leukopenia-WBC 2.4
Qhmfny-sqforrcqgj-yeqgpralan 10.5
TAQUERIA
Metabolic acidosis
Hypoalbuminemia
Left lower lobe pneumonia
Conditions present prior to admission:
Hyperlipidemia.
Hypothyroid.
Osteoporosis.
Compression fractures
Rheumatoid arthritis-1 mg prednisone weekly.
Diverticulosis
Hepatic cyst
Scoliosis/kyphosis
Hiatal hernia
Ruptured cerebral aneurysm status post clipping.
Plan
Admit patient to medical intensive care unit for persistent hypotension despite fluid resuscitation requiring pressors
Supplement oxygen as needed
High flow oxygen if needed
BiPAP if necessary
Intubate and mechanically ventilate if necessary-reviewed CODE STATUS with son-would want aggressive resuscitative efforts if reversible process seen-otherwise would not want extraordinary means of life support if futile
Aspiration precautions
Nebulizers if needed
Follow chest f-bzr-pnvlxpkc basilar pneumonia-antibiotics for abdomen should cover chest pathogens
Obtain cultures
Empiric antibiotics continue-vancomycin and Zosyn
Fluid resuscitation with 30 mL/kg crystalloid-preferably lactated ringer-(less TAQUERIA) with subsequent boluses as needed
Monitor lactate
Follow CVP if possible
Attempt noninvasive bedside tissue perfusion evaluation to see if fluid bolus responsive
Measure pulse pressure and stroke volume variation if patient on ventilator, passively breathing without arrhythmia and with temporary large tidal volume ventilation and if > 13% then likely fluid bolus responsive
If patient active then consider measuring bedside leg lift for 3 minutes and if cardiac output increases or if there is a rise of 2-4 on end-tidal CO2 then fluid bolus
If bedside ultrasound available then measure IVC diameter variation to evaluate for fluid bolus responsiveness
Begin pressors as needed for MAP goal of 65-Norepinephrine first, then Vasopressin and consider Angiotensin II if continues to be hypotensive
Consider methylene blue if available-specific inhibitor of induced nitric oxide synthase iNOS and its downstream enzyme soluble guanylate cyclase-noninferiority study shown to reduce time to vasopressor discontinuation, decreased ICU length of stay,
hospital stay but no change in mortality-published Critical Care 05/20/2022
If persistently hypotensive then consider checking random cortisol-hydrocortisone if random less than 3, if 3-15 then consider ACTH stimulation test
If persistently hyperthermic then correcting hyperthermia can decrease pressor requirements, increased chances of reversal of shock and decrease mortality
Surgical consultation noted-recommend bowel rest, IV fluid hydration, empiric antibiotics and supportive care, no role for surgical intervention at this time
GI evaluation ongoing-reviewed the case with them-agree with supportive care
Intravenous fluids
Nephrology evaluation
Replace electrolytes
Monitor blood sugar
Insulin supplementation if needed
Follow hemoglobin
Transfuse as needed
DVT prophylaxis-on heparin
Early nutrition if possible
Early mobilization/bedside range of motion
Prognosis extremely guarded-reviewed with son in regards to CODE STATUS-would want full code if reversible process present, however, would not want to be on a ventilator more than 2-3 days, etc.-we will respect family wishes and rediscuss if
prognosis becomes grim or condition becomes terminal at which time it appears as though family would be agreeable to full DNR status
Critical care statement: A total of 50 minutes of critical care time was provided for this patient today. This includes management of unstable vital signs, evaluation of the patient at bedside, reviewing the patient's pertinent medical records
including radiographs, microbiology, laboratory evaluations, and discussion with primary team, consultants, pharmacy, nutrition, physical therapy, case management, charge nurse, critical care nursing, and respiratory therapy.
Diagnostic data:
Chest x-ray 03/29/2022-NAD, osteopenia, scoliosis, kyphosis, moderate hiatal hernia
Chest x-ray 04/14/2023-new right lower lobe atelectasis, possible left midlung field pneumonia
Chest x-ray 04/16/2023-improved aeration left lower lobe lung field suggesting improving pneumonia
CT head 05/03-no acute intracranial abnormalities
CT abdomen and pelvis 04/16/2023-findings concerning for shock bowel, mild ascites, hepatic cyst, gallbladder wall enhancement and acute cholecystitis cannot be excluded, diverticulosis, moderate cardiomegaly, small pericardial effusion, spine
compression fracture in the lumbar area, minimal basilar consolidation
Renal ultrasound 04/14/2023-unremarkable
Echocardiogram 04/14/2023-EF 65-70%, intermediate diastolic dysfunction, mild mitral regurgitation, mild aortic regurgitation, small posterior pericardial effusion, no significant change since 07/24/2022
Data Reviewed
-
EKG: Report reviewed by me
Radiology: Report reviewed by me
CT Scan: Report reviewed by me
Ultrasound: Report reviewed by me
Labs: Labs reviewed by me
Old Records: Reviewed
Critical Care Time (in minutes): 50
--- NOTE | 2023-04-17 07:54 | W.PN.UPDATE ---
Update Note
Progress Note Update
CT imaging reviewed overnight. Pattern of thickened bowel is within entirety of stomach, duodenum, and first part of jejunum; surgical resection of this entire area is not an option. No pneumatosis or free air. Difficult to discern the exact
cause for her issues, vasculature appears patent and unlikely area for low flow ischemia, inflammatory, possibly infectious. Reported symptoms of epigastric discomfort fit with radiographic findings. GI consult noted. Recommend aggressive
resuscitation, abx, and NPO. Would avoid pressors that will cause worsening splanchnic vasoconstriction (Vaso and Maxwell). Define goals of care.
[2023-04-17] MEDS: HEPARIN 5000 UNITS SC ×2 (07:55→20:13)
--- NOTE | 2023-04-17 08:08 | CON.GI ---
Consultation
-
Date/Time Consultation Performed: 04/17/23
Performing Provider: Jose Tavares MD
Reason for Consultation: abdominal pain
Medical History
Chief Complaint / HPI
Chief Complaint: Abdominal pain/vomiting
History of Present Illness:
The patient is an 87-year-old female with past medical history as noted presents with abdominal pain. The patient is seen with her son, who translates and gives most of the history. She has been having episodes of epigastric pain, with decreased
appetite and anorexia for the past couple of weeks. She was recently hospitalized with a syncopal episode, thought to be vasovagal, and CT scan at that time showed no significant abnormalities. She then had severe pain yesterday which prompted her
to come to the emergency room. CT scan now without contrast shows long segment of significantly thickened small bowel including duodenum and jejunum, without pneumatosis. There is no significant atherosclerosis in this area. Currently the patient
continues to have pain and was significantly hypotensive overnight, did respond to IV fluids, now on Levophed. She has had some vomiting of coffee-ground emesis.
Past Medical History
Past Medical History: Other (ruptured cerebral aneurysm clipping, osteoporosis, rheumatoid arthritis, hypothyroidism, hyperlipidemia)
Social History
Tobacco: Non-Smoker
Alcohol: None
Family History
Family History: Reviewed & Not Pertinent
Allergies / Home Medications
Allergy/AdvReac Type Severity Reaction Status Date / Time
No Known Allergies Allergy Verified 04/13/23 17:15
Medication Instructions Recorded
cholecalciferol (vitamin D3) 25 25 mcg PO DAILY Supplement 04/13/23
mcg (1,000 unit) tablet (Vitamin
D3)
furosemide 20 mg tablet 20 mg PO DAILY Fluid 04/13/23
Retention/Swelling
levothyroxine 75 mcg tablet 75 mcg PO DAILY Thyroid 04/13/23
wyuulxru-hcvg-prav 8 mg-folic 400 1 tab PO DAILY Supplement 04/13/23
mcg-K 50 mcg-lutein 300 mcg tablet
(Centrum Silver Women)
prednisone 1 mg tablet 1 mg PO SA Anti-Inflammatory 04/13/23
red yeast rice 600 mg tablet 1,200 mg PO DAILY High Cholesterol 04/13/23
Review of Systems
-
All other systems: A 12 pt ROS was Negative except as stated above in HPI
Vital Signs
Temp Pulse Resp BP Pulse Ox
97.8 F 69 21 64/31 98
04/17/23 08:07 04/17/23 06:05 04/17/23 06:05 04/17/23 06:05 04/17/23 05:34
Physical Exam
Exam
General: NAD
HEENT: MMM, anicteric, no lymphadenopathy
Heart: Regular, no murmurs
Lungs: CTA bilaterally
Abdomen: No bowel sounds, distended, some increased tympany, diffuse tenderness with rebound
Extremeties: no edema
Skin: no rashes
Results
WBC 5.3 10^3/uL (4.8-10.8) 04/17/23 06:19
Hgb 10.5 g/dL (12.0-16.0) L 04/17/23 06:19
Hct 32.6 % (37.0-47.0) L 04/17/23 06:19
MCV 97.6 fL (81.0-99.0) 04/17/23 06:19
Plt Count 225 10^3/uL (130-400) 04/17/23 06:19
Absolute Neuts (auto) Not Reportable 04/16/23 17:26
PT 15.3 Sec (11.4-14.6) H 04/17/23 01:13
INR 1.21 04/17/23 01:13
APTT 35.3 Sec (23.4-35.0) H 04/17/23 01:13
Sodium 143 mmol/L (135-145) 04/17/23 06:19
Potassium 4.4 mmol/L (3.5-5.1) 04/17/23 06:19
Chloride 119 mmol/L (98-107) H 04/17/23 06:19
Carbon Dioxide 19 mmol/L (22-30) L 04/17/23 06:19
BUN 35 mg/dl (7-17) H 04/17/23 06:19
Creatinine 1.5 mg/dL (0.6-1.0) H 04/17/23 06:19
Calcium 8.3 mg/dl (8.4-10.2) L 04/17/23 06:19
Total Bilirubin 0.5 mg/dl (0.2-1.3) 04/17/23 06:19
AST 30 U/L (14-36) 04/17/23 06:19
ALT 15 U/L (0-35) 04/17/23 06:19
Alkaline Phosphatase 103 U/L (38-126) 04/17/23 06:19
Lipase 447 U/L (23-300) H 04/16/23 17:26
Diagnostic Image Results:
CT:
IMPRESSION: Findings concerning for shock bowel. See above. Clinical correlation recommended.
Mild abdominopelvic ascites. New.
Hepatic cyst. Stable.
Gallbladder wall enhancement. This may be partially due to contraction. Acute cholecystitis cannot be excluded. This would better be evaluated by ultrasound.
Simple right renal cyst. Bilateral too small characterize hypodense renal lesions likely benign cysts.
Diverticulosis.
Stable lumbar spine compression fractures.
Moderate cardiomegaly.
Small pericardial effusion
Minimal bibasilar consolidation.0
Prior GI Procedures:
EGD:
Colonoscopy:
Assessment / Plan
-
1. Abdominal pain: Most consistent with severe intestinal ischemia, with long segment of small intestine including duodenum, with significant hypotension overnight, now improved though still with significant pain and rebound, worry for necrosis. I
discussed preliminary with surgery, likely not surgical candidate given location and length of bowel affected. I discussed with the patient's family at length and critical care, will continue supportive care with volume support, antibiotics and
supportive care, though overall prognosis may be poor if she does not start to improve quickly, and may need to consider comfort care.
-
-
Thank you for consultation and allowing me to participate in the patient's care. Please call the forming yardage control operator GI physician during the after hours with any questions or concerns.
--- NOTE | 2023-04-17 08:36 | CON.GS ---
Consultation
-
Performing Provider: lakshmi
Reason for Consultation: abdominal pain
Medical History
-
Chief Complaint: abdominal pain
History of Present Illness:
Patient is an 87-year-old female readmitted secondary to abdominal pain after recent hospitalization and discharge for syncope/hypothermia.
History obtained from patient's son at bedside. He reports a few week history of slow progressive decline where his mother has had anorexia and been limited to her bed. She was unresponsive this past weekend and this prompted emergency department
evaluation with subsequent admission for syncope/hypothermia. She did not have abdominal pain until yesterday but seems like she has continued with very little appetite and was not eating at home even after discharge. She was brought back to the
ER due to her diffuse abdominal pain yesterday. No nausea or vomiting. Patient had a formed stool yesterday per her son. No melena or hematochezia that he is aware of. No diarrhea.
No past abdominal surgical history. No similar episodes of abdominal pain like this in the past.
Past Medical History
Past Medical History: Other (Ruptured cerebral aneurysm clipping, osteoporosis, rheumatoid arthritis, hypothyroidism, hyperlipidemia)
Past Surgical History: Other (Cerebral aneurysm clipping)
Social History
Living: With Family
Family History
Family History: Reviewed & Noncontributory
Allergies / Home Medications
Allergy/AdvReac Type Severity Reaction Status Date / Time
No Known Allergies Allergy Verified 04/13/23 17:15
Medication Instructions Recorded Confirmed Type
cholecalciferol (vitamin D3) 25 25 mcg PO DAILY Supplement 04/13/23 04/16/23 History
mcg (1,000 unit) tablet (Vitamin
D3)
furosemide 20 mg tablet 20 mg PO DAILY Fluid 04/13/23 04/16/23 History
Retention/Swelling
levothyroxine 75 mcg tablet 75 mcg PO DAILY Thyroid 04/13/23 04/16/23 History
xygvvrjn-aphm-uldk 8 mg-folic 400 1 tab PO DAILY Supplement 04/13/23 04/16/23 History
mcg-K 50 mcg-lutein 300 mcg tablet
(Centrum Silver Women)
prednisone 1 mg tablet 1 mg PO SA Anti-Inflammatory 04/13/23 04/16/23 History
red yeast rice 600 mg tablet 1,200 mg PO DAILY High Cholesterol 04/13/23 04/16/23 History
Review of Systems
-
A 10 point review of systems was completed, and was negative except as per HPI.
Physical Exam
Vital Signs
Temp Pulse Resp BP Pulse Ox
97.8 F 69 21 64/31 98
04/17/23 08:07 04/17/23 06:05 04/17/23 06:05 04/17/23 06:05 04/17/23 05:34
04/16/23 04/17/23 04/18/23
06:59 06:59 06:59
Actual Weight 52.8 kg
Body Mass Index (BMI) 20.6
Lab Results
04/17/23 06:19
04/17/23 06:19
WBC 5.3 10^3/uL (4.8-10.8) 04/17/23 06:19
Hgb 10.5 g/dL (12.0-16.0) L 04/17/23 06:19
Hct 32.6 % (37.0-47.0) L 04/17/23 06:19
Plt Count 225 10^3/uL (130-400) 04/17/23 06:19
Abs Immat Gran (auto) Not Reportable 04/16/23 17:26
Neutrophils % Not Reportable 04/16/23 17:26
Physical Exam
General: Other (Elderly female, acutely ill appearing)
HEENT: Normocephalic, Anicteric and Moist Mucous Membranes
Respiratory: Non Labored Respirations
Cardiac: Regular Rhythm
GI: Soft, Distended and Other (Diffusely tender on examination with voluntary guarding and rebound)
Neuro: Awake, Alert and Oriented
Psych: Calm
Data Reviewed
-
CT Scan: Image Personally Visualized and interpreted, Report Reviewed by me, Discussed with Physician, Discussed with Nurse and Discussed with Family
Assessment / Plan
-
Assessment/Plan: 87-year-old female with recent hospitalization for syncope/hypothermia now with diffuse abdominal pain.
Suspect probable nonocclusive mesenteric ischemia although it is not in the typical pattern/location as the enhancement seen on CT imaging is predominantly in the stomach, duodenum and first segment of the jejunum in setting of her hypotension.
Aorta/mesenteric vessels well-opacified without evidence of large thrombus. There is no radiographic evidence of pneumatosis, portal venous air suggestive of advanced ischemia/bowel compromise. There is no free air.
Discussed with patient's son, her nephew via phone call who is a pain management physician and steel sash erector.
Given radiographic imaging without clear isolated segment of advanced bowel ischemia and possible nonocclusive mesenteric ischemia versus other inflammatory process recommend continued medical management including bowel rest, aggressive IV fluid
hydration, empiric antibiotics and supportive care.
At this time do not see any role for surgical intervention which would help alleviate or improve current process
[2023-04-17 08:45] LABS: Absolute Neutrophils -Man Diff 4.5 10^3/uL (1.4-6.5); Band Neutrophils 35 % (0-3); Lymphocytes 11 % (20-51); Monocytes 4 % (2-9); Segmented Neutrophils 50 % (42-75)
[2023-04-17 08:46] LABS: Anisocytosis 1+; Hypochromasia 1+; Normal RBC Morphology No; Ovalocytes Slight; Platelets Checked Yes; Polychromasia Slight; Total Cells Counted 100
--- NOTE | 2023-04-17 09:01 | PHA.VAN.IN ---
Assessment
- Assessment
Renal Function: Unknown baseline
Concomitant Antimicrobials: piperacillin/tazobactam
Plan
- Plan
Initial / Loading Dose: 1500mg - 04/16 22:44
Maintenance Regimen: dosing by level - hold off on further dosing, no UOP yet
Monitoring: random 04/18 0600
MRSA Screen: Ordered per protocol
Pharmacokinetics Vancomycin I
- -
Patient Age: 87
Patient Sex: Female
Vancomycin Day #: 1
Indication: Gi / Intra-Abdominal
Requesting Provider: Dr. Robertson
Pertinent Antimicrobial Allergies:
NKDA
Height / Weight:
Height 5 ft 3 in
Actual Weight 52.8 kg
- Vital Signs / Lab Results
Temp Pulse Resp BP Pulse Ox
97.8 F 69 21 64/31 98
04/17/23 08:07 04/17/23 06:05 04/17/23 06:05 04/17/23 06:05 04/17/23 05:34
Lab Results - Hematology
04/16/23 04/17/23
17:26 06:19
WBC 2.4 L* 5.3
Band Neutrophils 16 H 35 H D
Lab Results - Chemistry
04/16/23 04/17/23
17:26 06:19
BUN 37 H 35 H
Creatinine 1.4 H 1.5 H
Estimated Creat Clear 22
Albumin 3.3 L 2.3 L
04/16/23 04/17/23 04/17/23
18:01 01:13 06:19
Lactic Acid 2.0 1.0 1.0
Lab Results - Urine
04/16/23
18:52
Urine Nitrite (Reflex) Negative
Leukocyte Esterase Rfl Trace A
Urine WBC (Reflex) 0-2
Urine Bacteria (Reflex) Moderate A
--- NOTE | 2023-04-17 09:03 | PTCARENOTE ---
report received, assessments per work list. patient drowsy but still with abdominal pain when awake. levophed per work list. lungs diminished with basilar crackles. sinus tach with bbb, frequent pac, self limited episodes afib. no void, bladder scan
per work list. son at bedside. apn, gi and surgery in to evaluate
[2023-04-17] MEDS: LR 500 IV ×2 (09:50→12:50)
--- NOTE | 2023-04-17 10:14 | VNURNOTE ---
Patient is current with [facility] only since 04/16, will monitor progress and plan at discharge.
--- NOTE | 2023-04-17 10:19 | PTCARENOTE ---
patient with continued hypostension, fluid bolus initiated, levophed titration per work list. goals of care with son and tool and die maker . patient to remain a full code at this time. per son, patient is having some confusion at times. very drowsy
--- NOTE | 2023-04-17 12:22 | PTCARENOTE ---
patient reassessed, per son, patient more confused. intermittently restless. Levophed titration per work list. pulse oximeter 88 on room air, oxygen applied. Sales Center Associate updated by imani maurer. VAT team updated with PICC order
--- NOTE | 2023-04-17 12:37 | CM ---
CM following re: discharge planning.
Discussed in Rounds, reviewed pt's chart, met with pt. Pt's son and daughter in law at bedside.
Pt is an 87 year old female,admitted with primary dx of Sepsis. Pt's son participated in Rounds meeting, updated on pt's current health condition, treatment plan and prognosis.
Pt was born and grew up in [place], emig[place] to [place] with family 20 years ago and resides with son in a 2SH, 2 steps to enter, stays on the first floor. Per son, pt ambulates with a walker and is active with [facility]. [facility] liaison is aware of pt's
admission to the hospital.
PCP: Sloane Lugo
Pharmacy: [facility].
D/C plan: pt's son hopes pt will be able to return back home with resumptions of [facility] and family support.
CM will follow with discharge plan updates as hospitalization progresses
--- NOTE | 2023-04-17 14:18 | PTCARENOTE ---
picc placed by VAT team, cxr taken, awaiting read by radiology. levophed titration per work list
--- NOTE | 2023-04-17 16:55 | PTCARENOTE ---
Addendum entered by Cristina Peraza RN 04/17/23 17:21:
orders received for BMP@1999
Original Note:
reassessed@1600, repositioned. assessments unchanged. no urine output, bladder scan's per work list. levophed per work list. PICC patent, good blood returns, readjusted by CATINA RN. family at bedside. updated. Forming Roll Operator Heavy Duty updated by imani text re: no
urine output, levophed dosing
[2023-04-17] MEDS: PITRESSIN 100 IV (20:23)
[2023-04-17 21:07] LABS: Blood Urea Nitrogen 42 mg/dl (7-17); Calcium 7.4 mg/dl (8.4-10.2); Carbon Dioxide 15 mmol/L (22-30); Chloride 108 mmol/L (98-107); Estimated Creatinine Clearance 18 ml/min; Glucose 271 mg/dl (70-99); Potassium 4.3 mmol/L (3.5-5.1); Sodium 132 mmol/L (135-145); eGFR 26.93
--- NOTE | 2023-04-17 22:13 | PTCARENOTE ---
Received patient in bed, family ay bedside. Family reports patient has confused conversation and is drowsy. Normal sinus/sinus tach with PACs, 80s-100s. On 16 mcg of levo, titrating to maintain MAP >65. NSS at 120 mls/hr. On 3 liters nasal cannula,
oxygen saturation 97%. Tachypneic, shallow breathing, fine crackles posteriorly and diminished throughout. Abdomen distended, very tender to touch. Bladder scanned at 2000 for 133, next bladder scan at 0200. Purewick [address]. Vasopressin added,
able to titrate levo down to 4 mcg. NSS fluids changed to bicarb drip as per order, patients carbon dioxide level 15 on chemistry. Blood sugar 271 on chemistry, Marifer Bauer STATISTICAL MODELER aware, ordered insulin pen. Son at bedside, hourly rounding and patient
safety checks ongoing.
[2023-04-17] MEDS: SUBLIMAZE 25 MCG IV (22:58)
[2023-04-17] MEDS: SODIUM BICARBONATE 1150 MEQ IV (22:58)
[2023-04-18] VITALS (86 sets, daily range): BP systolic 68–170; BP diastolic 36–119; BMI 20.3
[2023-04-18] MEDS: NOVOLOG FLEXPEN-MODERATE RESISTANCE SC ×3 (00:46→12:19)
--- NOTE | 2023-04-18 00:46 | PTCARENOTE ---
Patient assessment unchanged from previous, hourly rounding and patient safety checks ongoing.
[2023-04-18 00:48] LABS: Glucose - Point of Care 129 mg/dl (70-99)
[2023-04-18] MEDS: ZOSYN 50 IV ×4 (03:16→19:58)
--- NOTE | 2023-04-18 03:39 | PTCARENOTE ---
Patient voided 130 mls, bladder scan post void residual 106 mls. Labs sent. Otherwise patient assessment unchanged from previous. Hourly rounding and patient safety checks ongoing.
[2023-04-18 03:47] LABS: Hematocrit 28.3 % (37.0-47.0); Hemoglobin 9.6 g/dL (12.0-16.0); Mean Corp Hgb Conc. 33.9 g/dL (33.0-37.0); Mean Corpuscular Hgb 31.6 pg (27.0-31.0); Mean Corpuscular Volume 93.1 fL (81.0-99.0); Mean Platelet Volume 10.8 fL (7.4-10.4); Platelet Count 217 10^3/uL (130-400); Red Blood Cell Count 3.04 10^6/uL (4.20-5.40); Red Cell Dist. Width 15.9 % (11.5-14.5); White Blood Cell Count 4.9 10^3/uL (4.8-10.8)
[2023-04-18 03:58] LABS: Lactic Acid 1.2 mmol/L (0.7-2.0)
[2023-04-18 04:04] LABS: Vancomycin Random 18.4 ug/ml
[2023-04-18 04:08] LABS: Blood Urea Nitrogen 43 mg/dl (7-17); Carbon Dioxide 19 mmol/L (22-30); Chloride 112 mmol/L (98-107); Estimated Creatinine Clearance 15 ml/min; Glucose 130 mg/dl (70-99); Potassium 4.4 mmol/L (3.5-5.1); Sodium 134 mmol/L (135-145); eGFR 21.17
[2023-04-18] MEDS: PITRESSIN 100 IV ×2 (05:57→16:46)
[2023-04-18] MEDS: CALCIUM GLUCONATE 130 MG IV (05:57)
[2023-04-18 06:08] LABS: Glucose - Point of Care 149 mg/dl (70-99)
--- NOTE | 2023-04-18 06:39 | W.PN.HOSP.TC ---
Addendum entered and electronically signed by Markus Cortez MD 04/18/23 13:09:
Severe protein calorie malnutrition
Original Note:
Today's Communication/Plan
-
Given the onset of rubric acute kidney injury at this point we will get nephrology input
Continue bicarb drip and IV fluids
Continue to treat her abdominal pain
Continue antibiotics
Had discussion with patient's son at bedside regarding discussions with family members regarding goals of care and entry into comfort care as she would qualify for inpatient hospice given her poor prognosis
Assessment / Plan
Assessment / Plan
87-year-old female with past medical history of ruptured cerebral aneurysm clipping, osteoporosis, rheumatoid arthritis, hypothyroidism, hyperlipidemia, presenting with abdominal pain and nausea and vomiting.� History obtained from patient's son.
Patient was discharged April 14 after being admitted for syncopal episode.� When she arrived she was hypotensive and hypothermic.� It was thought that her symptoms were vasovagal since she had hypotension and TAQUERIA treated with IV fluids.�
Hypothermia resolved and was thought the patient a viral illness.� Procalcitonin at the time of discharge was normal. CT scan of the abdomen pelvis did not show any abnormality although there was questionable inflammatory infiltrate in the left
base.� TSH and random cortisol, urinalysis was normal.
Since discharge patient is been complaining of worsening abdominal pain after she ate some ice cream today.� Abdominal pain has been ongoing throughout the past hospitalization.� Abdominal pain is located across her bellybutton.� She threw up a few
times.� No blood noticed in the vomit.. She has also been having trouble with difficulty swallowing solids.� No diarrhea.� Bowel movements are regular without any blood in the stool.� She also has been having ongoing shortness of breath.� No fever.�
She has been mentally alert. 2 sons knowledge she has never had a colonoscopy
No smoking or alcohol use.
# Severe abdominal pain/recurrent sepsis (hypothermia, leukopenia, hypotension) unclear source
# Recent hypothermia/syncopal episode
-Chest x-ray shows improved aeration of the left lower lung field suggesting improved pneumonia
-Urinalysis unremarkable
-Procal elevated/close normal 2/6
-Bands present/
-Repeat CT abdomen pelvis with IV contrast this time consistent with suspected shock bowel in the areas of the small kristin/and gastric lining
-Surgical consult placed and no intervention contemplated given diffuseness of ischemia involving gastric and small bowel
-Check blood cultures
-Requiring Elijah hugger
-IV fluids/pressor support as needed
-Vancomycin/Zosyn
-100 IV hydrocortisone given although no evidence of adrenal insufficiency/had been on maintenance prednisone 1 mg
-Hold Lasix
-Recent echocardiogram without any significant change
#Hypothermia on presentation now improved
-Similar to 3 days ago when had syncope
-Cortisol and TSH within normal limits done
-In relation to underlying sepsis and ischemic bowel
# Acute kidney injury/no developing and lower urine output and acidosis
-Had initial course of TAQUERIA 3 days ago that resolved with IV fluids
-Hold Lasix
-IV fluids
-Will consult nephrology continue on bicarb drip
# Dysphagia to solids
-Discussed knowledge never had colonoscopy or endoscopy.
-GI consulted/given 1 month of apparent ischemia involving the duodenum and small bowel not surgical candidate and not a candidate for endoscopic at this time
History of ruptured cerebral aneurysm status post clipping
Osteoporosis
Rheumatoid arthritis
Hypothyroidism
-Continue levothyroxine
Hyperlipidemia
Fluid retention
-Hold Lasix
Full code
I had discussions with patient's son at bedside given the gravity of her ischemic burden to her abdomen nonsurgical status and diminishing kidney function in the face of increasing need for pressor support that may only be aggravating further her
ischemia but I would favor placing the patient on comfort care as she is having continued significant abdominal pain and her measures right now only supportive in the face of unlikely interventions I have made the recommendation for family to
discuss entering into hospice care in the hospital to make her comfortable he promises to discuss with family and call me back
DVT prophylaxis�heparin
N.p.o.
Anticipated Discharge: Within 24 hours
Subjective/Interval History
-
Date of Service: April 18, 2023
Continues to refer at least an 8 out of 10 abdominal pain. Urine output is dropped she is at times delirious and hallucinating but not agitated. No respiratory distress now on double pressors
Objective Data
-
Labs:
Laboratory Results
04/17/23 04/18/23
20:28 03:29
WBC 4.9
Hgb 9.6 L
Hct 28.3 L
Plt Count 217
Sodium 132 L D 134 L
Potassium 4.3 4.4
Chloride 108 H 112 H
Carbon Dioxide 15 L 19 L
BUN 42 H 43 H
Creatinine 1.8 H 2.2 H
Glucose 271 H 130 H
Calcium 7.4 L 7.0 L
Vital Signs:
Vital Signs
Temp Pulse Resp BP Pulse Ox
97.2 F 74 24 116/58 96
04/18/23 04:05 04/18/23 06:00 04/18/23 06:00 04/18/23 06:00 04/18/23 02:00
I&O
04/16/23 04/17/23 04/18/23
06:59 06:59 06:59
Intake Total 1879 4686.5 / 4686.5
Output Total 100 / 100
Balance 1879 4586.5 / 4586.5
Review of Systems
-
History Source: Patient and Family
Constitutional: Reports Weakness
Abdomen/GI: Reports Abdominal Pain, Pain and Bloated
Psych: Reports Sad
Physical Exam
-
General: Appears in Distress and Appears Chronically Ill
HEENT: PERRLA
Respiratory: Crackles
Cardiac: Regular Rhythm
GI: Tender and Distended
Musculoskeletal: Edema, Right Lower Extrem and Edema, Left Lower Extrem
Neuro: Awake; Negative Alert (Delirium) or Oriented
Psych: Calm and Confused
Data Reviewed
-
Total Time Spent with Patient (in minutes): 67
CT Scan: Report Reviewed by me
Labs: Labs Reviewed by me (Yesterday bandemia of 35%/bicarb dropped to 15 overnight known bicarb drip and up to 19 creatinine rising to 2.2 from 1.8 calcium 7.0 with albumin 2.3 corrected to 8.3)
[2023-04-18] MEDS: HEPARIN 5000 UNITS SC ×2 (07:22→19:58)
[2023-04-18] MEDS: SUBLIMAZE 25 MCG IV ×2 (07:34→12:58)
--- NOTE | 2023-04-18 07:47 | W.PN.INTV ---
Today's Communication / Plan
Recommendations
Intravenous fluids
Nephrology evaluation
Pressors as needed
Analgesia as needed-comfort a priority
Updated family
If signs of bed bowels then family likely willing to make patient full DNR/DNI-will continue to monitor and address with family as clinical process evolves
Assessment
-
87-year-old female with a history of ruptured cerebral aneurysm, osteoporosis, rheumatoid arthritis, hypothyroid and hyperlipidemia presented with abdominal pain noted to have severe intestinal ischemia and roller printer consulted for bowel
ischemia/hypotension/critical care management 04/17/2023.
Assessment
Severe abdominal pain-nonocclusive mesenteric ischemia/intestinal ischemia
Leukopenia-WBC 2.4
Slrpew-gflbtwbuil-uzleureexx 10.5
TAQUERIA
Metabolic acidosis
Hypoalbuminemia
Left lower lobe pneumonia
Conditions present prior to admission:
Hyperlipidemia.
Hypothyroid.
Osteoporosis.
Compression fractures
Rheumatoid arthritis-1 mg prednisone weekly.
Diverticulosis
Hepatic cyst
Scoliosis/kyphosis
Hiatal hernia
Ruptured cerebral aneurysm status post clipping.
Plan
Patient remains critically ill on 2 pressors with progressive renal insufficiency
Supplemental oxygen if needed
High flow oxygen if needed
BiPAP if necessary
Intubate and mechanically ventilate if necessary-reviewed CODE STATUS with son on 04/17/2023 and again on 04/18/2023-would want continued aggressive resuscitative efforts if reversible process seen-otherwise would not want extraordinary means of life
support if futile-we will follow throughout the day and if patient has signs of bowel infarction and patient is deemed terminal then we will keep addressing CODE STATUS
Aspiration precautions
Nebulizers if needed
Follow chest [id number] basilar pneumonia-antibiotics for abdomen should cover chest pathogens
Cultures reviewed-unrevealing thus far
Empiric antibiotics continue-vancomycin and Zosyn
Intravenous fluids-consider intermittent boluses
Norepinephrine and vasopressin as needed
Nephrology evaluation
Monitor renal function
Replace electrolytes as needed
Surgical consultation noted-recommend bowel rest, IV fluid hydration, empiric antibiotics and supportive care, no role for surgical intervention at this time
GI evaluation ongoing-reviewed the case with them-agree with supportive care
Follow blood sugar
Insulin supplementation if needed
Continue to monitor hemoglobin
Transfuse as needed
DVT prophylaxis-on heparin
Early nutrition if possible
Early mobilization/bedside range of motion
Prognosis extremely guarded-Dr. Anthony reviewed with son in regards to CODE STATUS on 04/17/2023 and again on 04/18/2023-would want full code if reversible process present, however, would not want to be on a ventilator more than 2-3 days, etc.-we will
respect family wishes and rediscuss if prognosis becomes grim or condition becomes terminal at which time it appears as though family would be agreeable to full DNR status
Critical care statement: A total of 40 minutes of critical care time was provided for this patient today. This includes management of unstable vital signs, evaluation of the patient at bedside, reviewing the patient's pertinent medical records
including radiographs, pressor management, microbiology, laboratory evaluations, and discussion with primary team, consultants, pharmacy, nutrition, physical therapy, case management, charge nurse, critical care nursing, and respiratory therapy.
Diagnostic data:
Chest x-ray 03/29/2022-NAD, osteopenia, scoliosis, kyphosis, moderate hiatal hernia
Chest x-ray 04/14/2023-new right lower lobe atelectasis, possible left midlung field pneumonia
Chest x-ray 04/16/2023-improved aeration left lower lobe lung field suggesting improving pneumonia
CT head 05/03-no acute intracranial abnormalities
CT abdomen and pelvis 04/16/2023-findings concerning for shock bowel, mild ascites, hepatic cyst, gallbladder wall enhancement and acute cholecystitis cannot be excluded, diverticulosis, moderate cardiomegaly, small pericardial effusion, spine
compression fracture in the lumbar area, minimal basilar consolidation
Renal ultrasound 04/14/2023-unremarkable
Echocardiogram 04/14/2023-EF 65-70%, intermediate diastolic dysfunction, mild mitral regurgitation, mild aortic regurgitation, small posterior pericardial effusion, no significant change since 07/24/2022
Subjective Dataa
Subjective Data
Date of Service:
Date of Service: April 18, 2023
Chief Complaint: Assembly Line Supervisor Follow Up and Pulmonary Follow Up
Subjective:
Pain according to the son is about the same 10/17, some confusion, no complaints of shortness of breath or chest pain
Review of Systems
General: Other (Per HPI)
Objective Data
Data Reviewed
Vital Signs / I&O / Oxygen:
Vital Signs
Temp Pulse Resp BP Pulse Ox
97.2 F 74 24 116/58 96
04/18/23 04:05 04/18/23 06:00 04/18/23 06:00 04/18/23 06:00 04/18/23 02:00
Intake and Output
04/17/23 04/18/23 04/19/23
06:59 06:59 06:59
Intake Total 0 / 0 4686.5 / 4686.5
Output Total 100 / 100
Balance 1880 / 1880 4586.5 / 4586.5
SaO2 96
Nasal Cannula flow liters per 3
minute
Physical Exam
General: Respiratory Distress (n) and Comfortable
HEENT: Normocephalic, Anicteric and Moist Mucous Membranes
Cardiovascular: Regular Rhythm
Respiratory: Wheeze (n), Crackles (n), Rhonchi (n), Non-Labored Respirations, Accessory Resp Muscle Use (n) and Stridor (n)
GI: Soft, Distended and Tender
Neurology: Awake, Alert and No Motor Deficits
Skin: Warm, Good Color, Cyanosis (n), Jaundice (n) and Rash (n)
Labs/Micro/Reports
Lab Data
04/18/23 03:29
04/18/23 03:29
Microbiology
04/16/23 18:23 Blood/Venous Blood Culture - Preliminary
No Growth in 24 hours- Final report to follow
04/16/23 18:00 Blood/Venous Blood Culture - Preliminary
No Growth in 24 hours- Final report to follow
[2023-04-18] MEDS: SODIUM BICARBONATE 1150 MEQ IV ×3 (07:48→22:48)
--- NOTE | 2023-04-18 07:56 | PTCARENOTE ---
report received, assessments per work list. patient with increased non verbal pain cues. medicated with fentanyl per prn order. patient restless, hallucinating. monitor nsr with bbb. right picc with good blood returns. levophed, vasopressin per work
list. lungs coarse,diminished. abdomen painful to gentle palpation. no bowel sounds. pure wick in place. son remains at bedside
--- NOTE | 2023-04-18 08:11 | PHA.VAN.FU ---
Vancomycin Assessment / Plan
- Assessment
Renal Function: SCR Increasing
WBC's are: WNL
In the past 24 hrs, patient has been: Afebrile
Concomitant Antimicrobials: piperacillin/tazobactam
- Assessment - Therapeutic Drug Monitoring
Random Level: 18.4 - drawn ~28.5H after 1500mg loading dose
- Dosing Plan
Dosing by Level: Hold off on dosing today
- Monitoring Plan
Random Level: 04/19 599
- Follow Up
Pharmacy will continue to follow.
Vancomycin Follow UP
- -
Patient Age: 87
Patient Sex: Female
Vancomycin Day #: 2
Indication: Gi / Intra-Abdominal
Requesting Provider: Dr. Robertson
Pertinent Antimicrobial Allergies:
NKDA
Height / Weight:
Height 5 ft 3 in
Actual Weight 52 kg
- Vital Signs / Lab Results
Temp Pulse Resp BP Pulse Ox
97.2 F 74 24 116/58 96
04/18/23 04:05 04/18/23 06:00 04/18/23 06:00 04/18/23 06:00 04/18/23 02:00
Lab Results - Hematology
04/16/23 04/17/23 04/18/23
17:26 06:19 03:29
WBC 2.4 L* 5.3 4.9
Band Neutrophils 16 H 35 H D
Lab Results - Chemistry
04/16/23 04/17/23 04/17/23
17:26 06:19 20:28
BUN 37 H 35 H 42 H
Creatinine 1.4 H 1.5 H 1.8 H
Estimated Creat Clear 22 18
Albumin 3.3 L 2.3 L
04/18/23
03:29
BUN 43 H
Creatinine 2.2 H
Estimated Creat Clear 15
Albumin
04/16/23 04/17/23 04/17/23
18:01 01:13 06:19
Lactic Acid 2.0 1.0 1.0
04/18/23
03:29
Lactic Acid 1.2
Microbiology Results
04/16/23 18:23 Blood Culture - Preliminary
Blood/Venous No Growth in 24 hours- Final report to follow
04/16/23 18:00 Blood Culture - Preliminary
Blood/Venous No Growth in 24 hours- Final report to follow
Therapeutic Drug Monitoring
Random Vancomycin 18.4 ug/ml 04/18/23 03:29
--- NOTE | 2023-04-18 08:36 | CON.MD ---
Consultation - Medical
-
Impression:
Acute renal failure
Metabolic acidosis
Severe abdominal pain-nonocclusive mesenteric ischemia/intestinal ischemia
Leukopenia-WBC 2.4
Anemia
Hypoalbuminemia
Left lower lobe pneumonia
Hyperlipidemia.�
Hypothyroid.�
Osteoporosis.
Compression fractures
Rheumatoid arthritis-1 mg prednisone weekly.
Diverticulosis
Hepatic cyst
Scoliosis/kyphosis
Hiatal hernia
Ruptured cerebral aneurysm status post clipping
Plan:
Acute renal failure:
-Likely prerenally mediated in setting of hemodynamic collapse and IV contrast administration during CAT scan
-I anticipate kidney function will worsen given recent IV contrast exposure
-No obstruction on CT
-Urinalysis essentially bland on admission
-Maintain hemodynamic support with pressors and IV fluids for treatment of metabolic acidosis, keep MAP>60
-intermittent bladder scans with low threshold for vargas
-Dialysis not to be entertained given advanced age and comorbidities
-I discussed the case with the patient's son
-45 minutes of critical care time spent with patient
[2023-04-18] MEDS: NSS (PRESERVATIVE FREE) 10 ML IV ×2 (09:35→19:58)
[2023-04-18] MEDS: PROTONIX IV 40 MG IV ×2 (09:35→19:58)
--- NOTE | 2023-04-18 10:27 | PN.CDI ---
CDI
- -
CDI:
Physician Documentation Request
Admit Date: 04/16/23 20:44
Dear Doctor Dana,
Patient admitted with sepsis.
04/17 Nutrition note, 'Per ASPEN/AND guidelines, pt meets for severe malnutrition in the context of chronic illness as evidenced by 8% weight loss x 1 month, <50% intake est needs x 1 month, muscle loss.
Please provide in your progress notes, additional specificity regarding the severity of the malnutrition:
Severe protein calorie malnutrition
Other (please specify)
Unable to determine
[place] Criteria ([facility] Hospitalist 2017)
2 or more criteria must be present for either
non severe or severe malnutrition
Note that the criteria differs related to the
presence of an acute or chronic illness
Chronic Illness
Energy Intake Non Severe: <75% for >1 month
Severe: <75% for >1 month
Weight Loss Non Severe: 5% over 1 month
7.5% over 3 months
10% over 6 months
20% over 1 year
Severe: >5% over 1 month
>7.5% over 3 months
>10% over 6 months
>20% over 1 year
Body Fat Non Severe: Mild Loss
Severe: Severe Loss
Muscle Mass Non Severe: Mild Loss
Severe: Severe Loss
Fluid Accumulation Non Severe: Mild Accumulation
Severe: Moderate to severe
accumulation
Reduced Battery Loader Strength Non Severe: N/A
Severe: Measurably reduced
Use of terms such as suspected, likely, concern for, or probable (associated with a specific diagnosis that is being evaluated, monitored, or treated as if it exists) are acceptable and can be coded in the inpatient setting, when documented at the
time of discharge.
Thank you,
Kathy SROENSEN,RN,CCDS
CDI Specialist
Available via [employer]
Please use your independent medical judgment in providing your response.
[2023-04-18 11:06] LABS: Glycohemoglobin (HgbA1c) 5.2 % (4.0-5.6)
[2023-04-18] MEDS: DEXTROSE 50% SYRINGE 12.5 GRAMS IV (12:23)
[2023-04-18 12:29] LABS: Glucose - Point of Care 66 mg/dl (70-99)
--- NOTE | 2023-04-18 12:34 | PTCARENOTE ---
Addendum entered by Cristina Peraza RN 04/18/23 13:12:
repeat accucheck 113. complete care given. medicated with fentanyl for increased nonverbal pain cues. reassessed.
Original Note:
reassessed. AccuCheck 66 D50 administered per protocol. patient lethargic preadministration. more awake post. ICU pharmacist updated. trialed with vasopressin off per Correctional Captain, MAP dropped to 60, resumed. no urine output. bladder scan per work
list
[2023-04-18 12:59] LABS: Glucose - Point of Care 113 mg/dl (70-99)
--- NOTE | 2023-04-18 13:12 | W.PN.GS2 ---
Today's Communication / Plan
-
`
Assessment / Plan
-
Assessment: 87 y/o female with diffuse gastric/small bowel inflammatory changes/edema and ascites
suspicion for non-occlusive mesenteric ischemia in setting of recent hypotension/low flow state- initial scan without free air, pneumatosis, mesenteric/portal venous air
continues with ongoing vasopressor requirement but improving on levophed
progressive ARF also likely reflective of end organ perfusion
Plan: given diffuse nature of CT imaging without well defined segment of ischemia and no CT findings suggestive of advanced/irreversible ischemia have recommended nonoperative management and supportive care rather than exploratory surgery
continue current tx course
consideration of repeat CT imaging depending on clinical course over next 24-48hrs
Subjective Data
-
Date of Service: April 18, 2023
pt seen and examined
nursing at bedside as well as family member
generalized abdominal pains similar to yesterday
remains on vasopressors - stable
Objective Data
-
Intake and Output
04/17/23 04/18/23 04/19/23
06:59 06:59 06:59
Intake Total 1880 / 1880 4686.5 / 4835.5 941 / 941
Output Total 100 / 100 0 / 0
Balance 1880 / 1880 4586.5 / 4735.5 941 / 941
Intake:
IV fluids (Total) 1580 / 1580 4356.5 / 4505.5 891 / 891
LR bolus 1000 / 1000
NS 1500 / 1500
Nss 1,000 ml @ 120 mls/hr IV . 80 / 80 1340 / 1340
Q8H20M ADAM Rx#:[id number]
Sterile Water For Injection 1125 / 1250 750 / 750
1000 ml 1,000 ml @ 125 mls/hr
IV .Q9H12M ADAM with Sodium
Bicarbonate 150 Meq Rx#:
[id number]
levophed 792.5 / 807.5 90 / 90
vaso 99 / 108 51 / 51
IV piggybacks 300 / 300 330 / 330 50 / 50
Output:
Urine, Wayne 0 / 0
Urine, Voided 100 / 100 0 / 0
Vital Signs
Temp Pulse Resp BP Pulse Ox
97.4 F 78 25 131/39 95
04/18/23 12:00 04/18/23 11:15 04/18/23 11:15 04/18/23 11:15 04/18/23 11:15
Lab Results
04/18/23 03:29
04/18/23 03:29
Calcium 7.0 mg/dl (8.4-10.2) L 04/18/23 03:29
Total Bilirubin 0.5 mg/dl (0.2-1.3) 04/17/23 06:19
AST 30 U/L (14-36) 04/17/23 06:19
ALT 15 U/L (0-35) 04/17/23 06:19
Alkaline Phosphatase 103 U/L (38-126) 04/17/23 06:19
Total Protein 4.9 g/dl (6.3-8.2) L D 04/17/23 06:19
Albumin 2.3 g/dl (3.5-5.0) L 04/17/23 06:19
Physical Exam
-
resting comfortably but ill appearing
ABD: softly distended, generalized tenderness with guarding
--- NOTE | 2023-04-18 13:45 | W.PN.GI.CBS2 ---
Today's Communication / Plan
-
1. Abdominal pain: CT scan showing circumferential wall thickening which is significant in the small bowel and also enhancement of the gastric mucosa
? Likely related to hypotension.
No evidence of GI bleeding noted.
Continue pressor support to keep mean arterial pressure more than 60 and continue IV hydration.
Monitor electrolytes and replete.
Added PPI IV twice daily.
Okay for ice chips if need be as long as patient's mental status is clear.
Reviewed follow-up from surgery, supportive care and depending on clinical course, repeat CT in 24 to [address] Tavares discussed with the patient's family at length 04/17/23 and critical care, will continue supportive care with volume support, antibiotics and supportive care, though overall prognosis may be poor if she does not start to improve quickly,
and may need to consider comfort care.
Discussed with patient's daughter bedside regarding the above plan
Assessment / Plan
-
1. Abdominal pain: CT scan showing circumferential wall thickening which is significant in the small bowel and also enhancement of the gastric mucosa
? Likely related to hypotension.
No evidence of GI bleeding noted.
Continue pressor support to keep mean arterial pressure more than 60 and continue IV hydration.
Monitor electrolytes and replete.
Added PPI IV twice daily.
Okay for ice chips if need be as long as patient's mental status is clear.
Reviewed follow-up from surgery, supportive care and depending on clinical course, repeat CT in 24 to [address] Tavares discussed with the patient's family at length 04/17/23 and critical care, will continue supportive care with volume support, antibiotics and supportive care, though overall prognosis may be poor if she does not start to improve quickly,
and may need to consider comfort care.
Subjective
Subjective
Date of Service: April 18, 2023
Patient with continued abdominal discomfort but not as much as yesterday. Passing some flatus but no bowel movements.
Still requiring pressor support.
Objective
Data Reviewed
Laboratory Data:
Laboratory Results
04/18/23 03:29
04/18/23 03:29
Laboratory Results
PT 15.3 Sec (11.4-14.6) H 04/17/23 01:13
INR 1.21 04/17/23 01:13
APTT 35.3 Sec (23.4-35.0) H 04/17/23 01:13
Total Bilirubin 0.5 mg/dl (0.2-1.3) 04/17/23 06:19
AST 30 U/L (14-36) 04/17/23 06:19
ALT 15 U/L (0-35) 04/17/23 06:19
Alkaline Phosphatase 103 U/L (38-126) 04/17/23 06:19
Lipase 447 U/L (23-300) H 04/16/23 17:26
Vital Signs and I&O:
Vital Signs
Temp Pulse Resp BP Pulse Ox
97.4 F 85 35 103/91 97
04/18/23 12:00 04/18/23 13:00 04/18/23 13:00 04/18/23 13:00 04/18/23 11:45
I&O
04/17/23 04/18/23 04/19/23
06:59 06:59 06:59
Intake Total 1879 4686.5 / 4835.5 941 / 941
Output Total 100 / 100 0 / 0
Balance 1879 4586.5 / 4735.5 941 / 941
Physical Exam
Physical Exam
GI: Soft, Distended (Mildly distended) and Normal Bowel Sounds (No bowel sounds noted)
--- NOTE | 2023-04-18 14:33 | CM ---
CM following re: discharge planning.
Discussed in Rounds, reviewed pt's chart, met with pt and pt's son at bedside. per Rounds meeting, continue supportive care, comfort care is a priority, goals of care discussions with family.
D/C plan: uncertain at this time and will depend on pt's progress.
CM will follow with discharge plan updates as hospitalization progresses
[2023-04-18 14:36] LABS: Glucose - Point of Care 128 mg/dl (70-99)
[2023-04-18] MEDS: LEVOPHED 250 IV (14:40)
--- NOTE | 2023-04-18 15:47 | PTCARENOTE ---
reassessed, no changes. levophed, bladder scan per work list documentation
[2023-04-18 17:31] LABS: Glucose - Point of Care 168 mg/dl (70-99)
--- NOTE | 2023-04-18 17:46 | PTCARENOTE ---
accallyson 168. reviewed with wood heel attacher pharmacist who advised to admin insulin per coverage as patient to continue with d5 until tomorrow
[2023-04-18] MEDS: NOVOLOG FLEXPEN-MODERATE RESISTANCE 1 UNITS SC (18:07)
--- NOTE | 2023-04-18 20:09 | PTCARENOTE ---
Received patient in bed, family at bedside. Pain meets patient acceptable level. Patient having confused conversation with family. Normal sinus with BBB and PACs, 60s-80s. On norepinephrine and vasopressin to meet MAP >65. See worklist for
titration. Normothermic, +1 generalized edema. On 3 liters nasal cannula, saturating 97%. Lung sounds coarse throughout, fine bibasilar crackles posteriorly. Abdomen firm, tender to gentle palpation, round, distended. Incontinent, purewick in place.
PICC and PIVs WNL. Hourly rounding and patient safety checks ongoing.
[2023-04-18 23:48] LABS: Glucose - Point of Care 169 mg/dl (70-99)
[2023-04-19] VITALS (28 sets, daily range): BP systolic 73–150; BP diastolic 41–94; BMI 23.5; BMI 25.5
[2023-04-19] MEDS: SUBLIMAZE 25 MCG IV ×7 (00:02→20:15)
[2023-04-19] MEDS: NOVOLOG FLEXPEN-MODERATE RESISTANCE 1 UNITS SC (00:07)
--- NOTE | 2023-04-19 00:47 | PTCARENOTE ---
Received pt at 2300 from previous RN. Pt. drowsy, confused per family member translating due to language barrier.Pt. oriented to self. CPOT = 6. Fentanyl given as ordered. SR with BBB and frequent PACs on tele. HR 60s. BP dropped after fentanyl dose
briefly.. levophed titrated accordingly- see documentation. +1 UE and trace LE edema. Unable to get temp oral or axillary so placed rectal probe- temp 94.0. Elijah rodriguez ordered.. awaiting blanket from supply room and will place on pt. On 3L NC.
Difficulty obtaining pulse ox but with good pleth, spo2 94%. Coarse throughout. Absent bowel sounds. Distended, tender to palpation. Purewick in place. Will monitor UO and bladder scans PRN. Bathed with CHG. Turning q2. R PICC with levophed, vaso
and bicarb gtts.
[2023-04-19] MEDS: ZOSYN 50 IV ×2 (02:28→08:06)
[2023-04-19] MEDS: PITRESSIN 100 IV (03:38)
--- NOTE | 2023-04-19 03:48 | PTCARENOTE ---
Temp slowly improving with adilene taryngger on high- 94.6 currently. Remains on vaso and low dose levo. Resting comfortably
[2023-04-19 04:06] LABS: Hematocrit 25.3 % (37.0-47.0); Hemoglobin 8.8 g/dL (12.0-16.0); Mean Corp Hgb Conc. 34.8 g/dL (33.0-37.0); Mean Corpuscular Hgb 31.7 pg (27.0-31.0); Mean Platelet Volume 11.1 fL (7.4-10.4); Platelet Count 159 10^3/uL (130-400); Red Blood Cell Count 2.78 10^6/uL (4.20-5.40); Red Cell Dist. Width 15.6 % (11.5-14.5); White Blood Cell Count 6.1 10^3/uL (4.8-10.8)
[2023-04-19 04:38] LABS: Blood Urea Nitrogen 54 mg/dl (7-17); Calcium 6.9 mg/dl (8.4-10.2); Carbon Dioxide 29 mmol/L (22-30); Chloride 98 mmol/L (98-107); Estimated Creatinine Clearance 13 ml/min; Glucose 132 mg/dl (70-99); Magnesium 1.4 mg/dl (1.6-2.3); Potassium 3.8 mmol/L (3.5-5.1); Sodium 133 mmol/L (135-145); eGFR 18.16
[2023-04-19 04:49] LABS: Vancomycin Random 15.6 ug/ml
[2023-04-19] MEDS: D5W 1000 IV (06:03)
[2023-04-19] MEDS: CALCIUM GLUCONATE 130 MG IV (06:03)
[2023-04-19] MEDS: NOVOLOG FLEXPEN-MODERATE RESISTANCE SC (06:06)
--- NOTE | 2023-04-19 06:16 | PTCARENOTE ---
Pt seems more lethargic this AM. She is able to speak short sentences to her daughter who is translating. Had short discussion with daughter about lab work this AM and her neurological status not improving.
--- NOTE | 2023-04-19 06:47 | W.PN.HOSP.TC ---
Addendum entered and electronically signed by Markus Cortez MD 04/19/23 14:28:
After meeting with metal bonding press operator family decided to pursue comfort care now off pressors and will be on fentanyl and Ativan as needed
Original Note:
Today's Communication/Plan
-
Patient with continued evidence of entrance into multiorgan failure of
Now with hypothermia further hypotension requiring double pressors after discussion with POA have changed CODE STATUS to DNR/DNI
Once he gets here we will make decision on comfort care measures
Assessment / Plan
Assessment / Plan
87-year-old female with past medical history of ruptured cerebral aneurysm clipping, osteoporosis, rheumatoid arthritis, hypothyroidism, hyperlipidemia, presenting with abdominal pain and nausea and vomiting.� History obtained from patient's son.
Patient was discharged April 14 after being admitted for syncopal episode.� When she arrived she was hypotensive and hypothermic.� It was thought that her symptoms were vasovagal since she had hypotension and TAQUERIA treated with IV fluids.�
Hypothermia resolved and was thought the patient a viral illness.� Procalcitonin at the time of discharge was normal. CT scan of the abdomen pelvis did not show any abnormality although there was questionable inflammatory infiltrate in the left
base.� TSH and random cortisol, urinalysis was normal.
Since discharge patient is been complaining of worsening abdominal pain after she ate some ice cream today.� Abdominal pain has been ongoing throughout the past hospitalization.� Abdominal pain is located across her bellybutton.� She threw up a few
times.� No blood noticed in the vomit.. She has also been having trouble with difficulty swallowing solids.� No diarrhea.� Bowel movements are regular without any blood in the stool.� She also has been having ongoing shortness of breath.� No fever.�
She has been mentally alert. 2 sons knowledge she has never had a colonoscopy
No smoking or alcohol use.
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
# Recent hypothermia/syncopal episode
-Chest x-ray shows improved aeration of the left lower lung field suggesting improved pneumonia
-Urinalysis unremarkable
-Procal elevated/was normal 04/15
-Bands present/
-Repeat CT abdomen pelvis with IV contrast this time consistent with suspected shock bowel in the areas of the small kristin/and gastric lining
-Surgical consult placed and no intervention contemplated given diffuseness of ischemia involving gastric and small bowel
-Check blood cultures
-Requiring Elijah hugger again this morning
-IV fluids/pressor support as needed
-Vancomycin/Zosyn
-100 IV hydrocortisone given although no evidence of adrenal insufficiency/had been on maintenance prednisone 1 mg
-Hold Lasix
-Recent echocardiogram without any significant change
#Hypothermia in relation to sepsis
-Similar to 3 days ago when had syncope
-Cortisol and TSH within normal limits done
-In relation to underlying sepsis and ischemic bowel
# Acute kidney injury/no developing and lower urine output and acidosis
-Had initial course of TAQUERIA 3 days ago that resolved with IV fluids
-Hold Lasix
-IV fluids
-Will consult nephrology continue on bicarb drip
# Dysphagia to solids
-Discussed knowledge never had colonoscopy or endoscopy.
-GI consulted/given 1 month of apparent ischemia involving the duodenum and small bowel not surgical candidate and not a candidate for endoscopic at this time
History of ruptured cerebral aneurysm status post clipping
Osteoporosis
Rheumatoid arthritis
Hypothyroidism
-Continue levothyroxine
Hyperlipidemia
Fluid retention
-Hold Lasix
April 18 I had discussions with patient's son at bedside given the gravity of her ischemic burden to her abdomen nonsurgical status and diminishing kidney function in the face of increasing need for pressor support that may only be aggravating
further her ischemia but I would favor placing the patient on comfort care as she is having continued significant abdominal pain and her measures right now only supportive in the face of unlikely interventions I have made the recommendation for
family to discuss entering into hospice care in the hospital to make her comfortable he promises to discuss with family and call me back
April 196:30 AM/discussed at bedside with daughter /son TANIYA discussed via phone
patient now with delirium diminished level response/increased respirations and diminishing urine output remains on double pressors hypothermic and hypotensive apparent impending respiratory failure and multiorgan failure ongoing have spoken to
patient's son over phone and will make patient DNR/DNI/with further my support of entrance to comfort care hopefully today waiting for family members to concur come to a consensus/did make the decision to convert to DNR/DNI status
DVT prophylaxis�heparin
N.p.o.
Anticipated Discharge: > 48 hours
Subjective/Interval History
-
Date of Service: April 19, 2023
Patient now not verbally responsive delirium and hypothermic with continued abdominal pain
Objective Data
-
Labs:
Laboratory Results
04/19/23
03:44
WBC 6.1
Hgb 8.8 L
Hct 25.3 L
Plt Count 159 D
Sodium 133 L
Potassium 3.8
Chloride 98
Carbon Dioxide 29
BUN 54 H
Creatinine 2.5 H
Glucose 132 H
Calcium 6.9 L*
Vital Signs:
Vital Signs
Temp Pulse Resp BP Pulse Ox
96.1 F L 73 25 93/69 99
04/19/23 06:00 04/19/23 06:30 04/19/23 06:30 04/19/23 06:30 04/19/23 06:15
I&O
04/17/23 04/18/23 04/19/23
06:59 06:59 06:59
Intake Total 1879 4686.5 / 4835.5 3698.4 / 3698.4
Output Total 100 / 100 0 / 0
Balance 1879 4586.5 / 4735.5 3698.4 / 3698.4
Review of Systems
-
History Source: Patient and Family (Daughter at bedside updated patient's son over phone)
Respiratory: Reports Trouble Breathing
Cardiac: Reports No Symptoms
Abdomen/GI: Reports Abdominal Pain and Pain
Physical Exam
-
General: Appears Chronically Ill
HEENT: Normocephalic
Respiratory: Rales
Cardiac: Irregular Rhythm
GI: Tender and Distended
Psych: Confused
Data Reviewed
-
Total Time Spent with Patient (in minutes): 56
Labs: Labs Reviewed by me (Hemoglobin 8.8 creatinine continues to trend up to 2.5 sodium 133/calcium dropped to 6.9 magnesium 1.4)
--- NOTE | 2023-04-19 07:41 | W.PN.INTV ---
Today's Communication / Plan
Recommendations
Comfort
Discontinue pressors
Fentanyl and Ativan as needed
Reviewed with family at the bedside
Assessment
-
87-year-old female with a history of ruptured cerebral aneurysm, osteoporosis, rheumatoid arthritis, hypothyroid and hyperlipidemia presented with abdominal pain noted to have severe intestinal ischemia and data warehouse analyst consulted for bowel
ischemia/hypotension/critical care management 04/17/2023.
Assessment
Severe abdominal pain-nonocclusive mesenteric ischemia/intestinal ischemia
Leukopenia-WBC 2.4
Hhzkzd-hxnozyyhgw-xoucmthihs 10.5
TAQUERIA
Metabolic acidosis
Hypoalbuminemia
Left lower lobe pneumonia
Conditions present prior to admission:
Hyperlipidemia.
Hypothyroid.
Osteoporosis.
Compression fractures
Rheumatoid arthritis-1 mg prednisone weekly.
Diverticulosis
Hepatic cyst
Scoliosis/kyphosis
Hiatal hernia
Ruptured cerebral aneurysm status post clipping.
Plan
Critically ill on pressors-vasopressin and no urine output
Continue supplemental oxygen
Now a DNR-DO NOT INTUBATE
Incentive spirometry
Aspiration precautions
Follow chest x-ray
Cultures reviewed-unrevealing thus far
Empiric antibiotics continue-vancomycin and Zosyn
Intravenous fluids per nephrology
Pressors continue-vasopressin
Nephrology evaluation ongoing-correspondence reviewed
Monitor renal function-worsening
Replace electrolytes as needed
Surgical consultation noted-recommend bowel rest, IV fluid hydration, empiric antibiotics and supportive care, no role for surgical intervention at this time
GI evaluation ongoing-correspondence reviewed-reviewed the case with them-continue with supportive care-added PPI
Monitor blood sugar
Insulin supplementation if needed
Continue to monitor hemoglobin
Transfuse as needed
DVT prophylaxis-on heparin
Early nutrition if possible
Early mobilization/bedside range of motion
Prognosis extremely guarded-Dr. Anthony reviewed with son in regards to CODE STATUS on 04/17/2023 and again on 04/18/2023-would want full code if reversible process present, however, would not want to be on a ventilator more than 2-3 days, etc.-we will
respect family wishes and rediscuss if prognosis becomes grim or condition becomes terminal at which time it appears as though family would be agreeable to full DNR status
Dr. Anthony reviewed with entire family on 04/19/2023-clinical situation-no improvement noted, renal failure noted, not a dialysis candidate, the son indicates they do not want her to suffer, grandchildren also on board, they would like withdrawal of
pressors and supportive care and allow her to pass in peace-reviewed with critical care nursing and primary team-Fentanyl and Ativan as needed-drip if needed
Critical care statement: A total of 42 minutes of critical care time was provided for this patient today. This includes management of unstable vital signs, evaluation of the patient at bedside, reviewing the patient's pertinent medical records
including radiographs, pressor management, microbiology, laboratory evaluations, and discussion with primary team, consultants, pharmacy, nutrition, physical therapy, case management, charge nurse, critical care nursing, and respiratory therapy.
Diagnostic data:
Chest x-ray 03/29/2022-NAD, osteopenia, scoliosis, kyphosis, moderate hiatal hernia
Chest x-ray 04/14/2023-new right lower lobe atelectasis, possible left midlung field pneumonia
Chest x-ray 04/16/2023-improved aeration left lower lobe lung field suggesting improving pneumonia
CT head 05/03-no acute intracranial abnormalities
CT abdomen and pelvis 04/16/2023-findings concerning for shock bowel, mild ascites, hepatic cyst, gallbladder wall enhancement and acute cholecystitis cannot be excluded, diverticulosis, moderate cardiomegaly, small pericardial effusion, spine
compression fracture in the lumbar area, minimal basilar consolidation
Renal ultrasound 04/14/2023-unremarkable
Echocardiogram 04/14/2023-EF 65-70%, intermediate diastolic dysfunction, mild mitral regurgitation, mild aortic regurgitation, small posterior pericardial effusion, no significant change since 07/24/2022
Subjective Dataa
Subjective Data
Date of Service:
Date of Service: April 19, 2023
Chief Complaint: Dedicated Owner Operator Follow Up and Pulmonary Follow Up
Subjective:
Increased agitation, increased pain, no urine output, responding to fentanyl, occasional agonal breathing
Review of Systems
General: Other (Per HPI)
Objective Data
Data Reviewed
Vital Signs / I&O / Oxygen:
Vital Signs
Temp Pulse Resp BP Pulse Ox
96.3 F L 73 25 93/69 99
04/19/23 07:22 04/19/23 06:30 04/19/23 06:30 04/19/23 06:30 04/19/23 06:15
Intake and Output
04/18/23 04/19/23 04/20/23
06:59 06:59 06:59
Intake Total 4686.5 / 4835.5 3698.4 / 3698.4
Output Total 100 / 100 0 / 0
Balance 4586.5 / 4735.5 3698.4 / 3698.4
SaO2 99
Nasal Cannula flow liters per 3
minute
Physical Exam
General: Respiratory Distress (n) and Comfortable
HEENT: Normocephalic, Anicteric and Moist Mucous Membranes
Cardiovascular: Regular Rhythm
Respiratory: Wheeze (n), Crackles (n), Rhonchi (n), Non-Labored Respirations, Accessory Resp Muscle Use (n) and Stridor (n)
GI: Soft, Distended and Tender
Neurology: Awake, Alert, No Motor Deficits and Lethargic
Skin: Warm, Good Color, Cyanosis (n), Jaundice (n) and Rash (n)
Labs/Micro/Reports
Lab Data
04/19/23 03:44
04/19/23 03:44
Microbiology
04/16/23 18:23 Blood/Venous Blood Culture - Preliminary
No Growth in 48 hours- Final report to follow
04/16/23 18:00 Blood/Venous Blood Culture - Preliminary
No Growth in 48 hours- Final report to follow
04/17/23 12:06 Nose MRSA Screen - Final
No Methicillin Resistant Staphylococcus aureus isolated.
04/16/23 18:52 Urine Urine Culture - Final
NO GROWTH
[2023-04-19] MEDS: HEPARIN 5000 UNITS SC (08:07)
[2023-04-19] MEDS: PROTONIX IV 40 MG IV (08:07)
[2023-04-19] MEDS: NSS (PRESERVATIVE FREE) 10 ML IV (08:07)
--- NOTE | 2023-04-19 08:24 | PTCARENOTE ---
report received, assessments per work list,patient with labored respirations, increased nonverbal pain cues. Hospitalist spoke with son on phone, he was updated and made decision to have code status changed due to patient decline. panteratent medicated
with fentanyl per prn order. no urine output, monitor nsr, on 3 liters. coarse breath sounds bilaterally. abdomen distended, painful to palpation. increased generalized anasarca. right picc in place, patent with good blood returns. vasopressin
continues. family gathered at bedside. updated
--- NOTE | 2023-04-19 09:21 | W.PN.NEPH.PH ---
Today's Communication / Plan
-
pressor support
Assessment/Plan
-
Impression:
Acute renal failure
Metabolic acidosis
Severe abdominal pain-nonocclusive mesenteric ischemia/intestinal ischemia
Leukopenia-WBC 2.4
Anemia
Hypoalbuminemia
Left lower lobe pneumonia
Hyperlipidemia.�
Hypothyroid.�
Osteoporosis.
Compression fractures
Rheumatoid arthritis-1 mg prednisone weekly.
Diverticulosis
Hepatic cyst
Scoliosis/kyphosis
Hiatal hernia
Ruptured cerebral aneurysm status post clipping
Plan:
Acute renal failure:
-worsening with creatinine up to 2.5
-anuric and hemodynamically labile
-calcium and magnesium to drop
-now on d5w for hypoglycemia but hyponatremia exacerbating
-Likely prerenally� mediated in setting of hemodynamic collapse and IV contrast administration during CAT scan
-I anticipated kidney function would worsen given recent IV contrast exposure
-No obstruction on CT
-Urinalysis essentially bland on admission
-Maintain hemodynamic support with pressors and IV fluids for treatment of metabolic acidosis, keep MAP>65
-Dialysis not to be entertained given advanced age and comorbidities
-likley moving towards comfort care so I will limit interventions
-critically ill with worsening TAQUERIA, hemodynamic instability on pressor support
-32 minutes of critical care time spent with patient
Total Time Spent with Patient (in minutes): 32
-
-
Date of Service: April 19, 2023
CC / HPI / ROS
-
Chief Complaint:
TAQUERIA
History of Present Illness:
TAQUERIA worsening and now anuric
hemodynamically labile on pressor support
hypoglycemic on d5w
Review of Systems:
anuric
abdominal pain
hypothermic
Labs
-
Labs:
WBC 6.1 10^3/uL (4.8-10.8) 04/19/23 03:44
RBC 2.78 10^6/uL (4.20-5.40) L 04/19/23 03:44
Hgb 8.8 g/dL (12.0-16.0) L 04/19/23 03:44
Hct 25.3 % (37.0-47.0) L 04/19/23 03:44
Plt Count 159 10^3/uL (130-400) D 04/19/23 03:44
Sodium 133 mmol/L (135-145) L 04/19/23 03:44
Potassium 3.8 mmol/L (3.5-5.1) 04/19/23 03:44
Chloride 98 mmol/L (98-107) 04/19/23 03:44
Carbon Dioxide 29 mmol/L (22-30) 04/19/23 03:44
BUN 54 mg/dl (7-17) H 04/19/23 03:44
Creatinine 2.5 mg/dL (0.6-1.0) H 04/19/23 03:44
eGFR 18.16 04/19/23 03:44
Glucose 132 mg/dl (70-99) H 04/19/23 03:44
Calcium 6.9 mg/dl (8.4-10.2) L* 04/19/23 03:44
Albumin 2.3 g/dl (3.5-5.0) L 04/17/23 06:19
Physical Exam
-
Vital Signs:
Vital Signs
Temp Pulse Resp BP Pulse Ox
96.8 F L 73 25 93/69 99
04/19/23 08:00 04/19/23 06:30 04/19/23 06:30 04/19/23 06:30 04/19/23 06:15
Cardiovascular:: Irregular rate and rhythm
Respiratory:: Bilateral: Coarse
Lung Excursion:: Normal
Abdomen:: Tender
Bowel Sounds:: Decreased
Extremity Edema:: +1: Bilateral:
Wayne Catheter: Yes
[2023-04-19] MEDS: D5/0.9% SODIUM CHLORIDE 1000 IV (09:35)
--- NOTE | 2023-04-19 09:45 | PTCARENOTE ---
Addendum entered by Cristina Peraza RN 04/19/23 10:38:
vasopressin d/c. status med surg with comfort measures. patient medicated with fentanyl per prn order. family gathered at bedside. support given
Original Note:
Underwear Trimmer in to discuss goals of care with patient family
[2023-04-19] MEDS: NSS (PRESERVATIVE FREE) 0.5 ML IV (13:22)
[2023-04-19] MEDS: ATIVAN 1 MG IV (13:22)
--- NOTE | 2023-04-19 14:47 | PTCARENOTE ---
patient medicated with fentanyl and ativan per prn orders. comfort measures maintained. family at bedside
--- NOTE | 2023-04-19 15:16 | PTCARENOTE ---
report to [address] [place] [address]
--- NOTE | 2023-04-19 16:18 | W.PN.UPDATE ---
Update Note
Progress Note Update
Patient's family is opted for comfort care
Medications have been withdrawn
Comfort a priority
Patient will be transferred out of ICU-call coil maker with questions if they arise
[2023-04-19] MEDS: ROBINUL 0.2 MG IV (21:00)
[2023-04-20 06:16] VITALS: BMI 25.5
[2023-04-20 07:00] VITALS: BP 128/34
--- NOTE | 2023-04-20 08:48 | W.PN.HOSP.TC ---
Today's Communication/Plan
-
Continuation on comfort care
Should remain inpatient and consideration for inpatient hospice early next week
Seems to be having adequate pain relief and treatment of respiratory status with the present course of as needed fentanyl
Oxygen as needed
Assessment / Plan
Assessment / Plan
87-year-old female with past medical history of ruptured cerebral aneurysm clipping, osteoporosis, rheumatoid arthritis, hypothyroidism, hyperlipidemia, presenting with abdominal pain and nausea and vomiting.� History obtained from patient's son.
Patient was discharged April 14 after being admitted for syncopal episode.� When she arrived she was hypotensive and hypothermic.� It was thought that her symptoms were vasovagal since she had hypotension and TAQUERIA treated with IV fluids.�
Hypothermia resolved and was thought the patient a viral illness.� Procalcitonin at the time of discharge was normal. CT scan of the abdomen pelvis did not show any abnormality although there was questionable inflammatory infiltrate in the left
base.� TSH and random cortisol, urinalysis was normal.
Since discharge patient is been complaining of worsening abdominal pain after she ate some ice cream today.� Abdominal pain has been ongoing throughout the past hospitalization.� Abdominal pain is located across her bellybutton.� She threw up a few
times.� No blood noticed in the vomit.. She has also been having trouble with difficulty swallowing solids.� No diarrhea.� Bowel movements are regular without any blood in the stool.� She also has been having ongoing shortness of breath.� No fever.�
She has been mentally alert. 2 sons knowledge she has never had a colonoscopy
No smoking or alcohol use.
Now on comfort care
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
# Recent hypothermia/syncopal episode
-Chest x-ray shows improved aeration of the left lower lung field suggesting improved pneumonia
-Urinalysis unremarkable
-Procal elevated/was normal 2/
-Bands present/
-Repeat CT abdomen pelvis with IV contrast this time consistent with suspected shock bowel in the areas of the small kristin/and gastric lining
-Surgical consult placed and no intervention contemplated given diffuseness of ischemia involving gastric and small bowel
-Check blood cultures
-Requiring Elijah hugger again this morning
-IV fluids/pressor support as needed
-Vancomycin/Zosyn
-100 IV hydrocortisone given although no evidence of adrenal insufficiency/had been on maintenance prednisone 1 mg
-Hold Lasix
-Recent echocardiogram without any significant change
#Hypothermia in relation to sepsis
-Similar to 3 days ago when had syncope
-Cortisol and TSH within normal limits done
-In relation to underlying sepsis and ischemic bowel
# Acute kidney injury/no developing and lower urine output and acidosis
-Had initial course of TAQUERIA 3 days ago that resolved with IV fluids
-Hold Lasix
-IV fluids
-Will consult nephrology continue on bicarb drip
# Dysphagia to solids
-Discussed knowledge never had colonoscopy or endoscopy.
-GI consulted/given 1 month of apparent ischemia involving the duodenum and small bowel not surgical candidate and not a candidate for endoscopic at this time
History of ruptured cerebral aneurysm status post clipping
Osteoporosis
Rheumatoid arthritis
Hypothyroidism
-Continue levothyroxine
Hyperlipidemia
Fluid retention
-Hold Lasix
April 18 I had discussions with patient's son at bedside given the gravity of her ischemic burden to her abdomen nonsurgical status and diminishing kidney function in the face of increasing need for pressor support that may only be aggravating
further her ischemia but I would favor placing the patient on comfort care as she is having continued significant abdominal pain and her measures right now only supportive in the face of unlikely interventions I have made the recommendation for
family to discuss entering into hospice care in the hospital to make her comfortable he promises to discuss with family and call me back
April 19/6:30 AM/discussed at bedside with daughter /son POJerica discussed via phone
patient now with delirium diminished level response/increased respirations and diminishing urine output remains on double pressors hypothermic and hypotensive apparent impending respiratory failure and multiorgan failure ongoing have spoken to
patient's son over phone and will make patient DNR/DNI/with further my support of entrance to comfort care hopefully today waiting for family members to concur come to a consensus/did make the decision to convert to DNR/DNI status
Placed on comfort care afternoon of 19 April/continue fentanyl as needed as needed currently/secretions management as needed/oxygen as needed/consideration toward [facility] inpatient hospice early next week
N.p.o.
Anticipated Discharge: 24 - 48 hours
Subjective/Interval History
-
Date of Service: April 20, 2023
Now on comfort care and seems to be comfortable overnight presence of patient's daughter at bedside discussed and seems to be satisfied
Objective Data
-
Vital Signs:
Vital Signs
Temp Pulse Resp BP Pulse Ox
98.6 F 63 18 128/34 97
04/20/23 07:00 04/20/23 07:00 04/20/23 07:00 04/20/23 07:00 04/20/23 07:00
I&O
04/19/23 04/20/23 04/21/23
06:59 06:59 06:59
Intake Total 3698.4 / 3807.4 886 / 886
Output Total 0 / 0 0 / 0
Balance 3698.4 / 3807.4 886 / 886
Review of Systems
-
Unable to obtain full review of systems at this time due to: Patient Non-verbal
History Source: Patient and Family
Constitutional: Reports Fatigue
Physical Exam
-
General: Cachectic
HEENT: Normocephalic
Respiratory: Crackles and Non Labored Respirations (Regular/tachypneic)
Cardiac: Regular Rhythm
GI: Tender and Distended
Neuro: Sedated
Data Reviewed
-
Total Time Spent with Patient (in minutes): 56
--- NOTE | 2023-04-20 14:42 | CM ---
Patient seen at bedside, with family present. Patient family asked for physician to call them and asked about hospice vs comfort care. Family plan for comfort care currently. CM will continue to follow for discharge planning needs.
Plan; comfort care.
[2023-04-20 23:55] VITALS: BP 101/54
--- NOTE | 2023-04-21 03:15 | PTCARENOTE ---
@2020; Bed alarm ringing.[facility] staff member calling for help.Found pt facing the bed,kneeling on left knee,standing on right foot while holding on to side rail with both hands.Pt was assisted to sitting position on floor by staff.Pt is confused
,disoriented x3 and unable to verbalize what happen. Pt was lifted up into bed by staff and security.Bruise,yellow/blue noted below left knee.Pt did not complain of pain.BETH Shaikh notified and into see pt.Vital signs done.Med sitter placed in
room along with bed alarm for pt safety.Superviser notified by charge nurse.
[2023-04-21 07:00] VITALS: BP 89/46
[2023-04-21] MEDS: ATIVAN 1 MG IV (09:30)
[2023-04-21] MEDS: MORPHINE SULFATE 1 MG IV (12:23)
--- NOTE | 2023-04-21 12:27 | CM ---
Patient seen at bedside with physician, and family members at beside. Patient family discussed medication changes with physician. Hospice consult called to [facility], and plan for assessment later today. CM will continue to follow for discharge
planning needs.
Plan; comfort care/hospice assessment.
--- NOTE | 2023-04-21 12:28 | W.PN.HOSP.TC ---
Addendum entered and electronically signed by Josefa Thompson MD 04/21/23 12:50:
error: abdomen--firm, distended, decreased bowel sounds
starting morphine drip
Original Note:
Today's Communication/Plan
-
consult hospice
change fentanyl to morphine
Assessment / Plan
Assessment / Plan
pt is an 87 year old female
Now on comfort care--will consult hospice
Severe abdominal pain/recurrent sepsis (hypothermia, leukopenia, hypotension) unclear source/presumed ischemic bowel/Recent hypothermia/syncopal episode
Hypothermia in relation to sepsis
Acute kidney injury/no developing and lower urine output and acidosis
Dysphagia to solids
History of ruptured cerebral aneurysm status post clipping
Osteoporosis
Rheumatoid arthritis
Hypothyroidism
Hyperlipidemia
Fluid retention
April 18 Dr. Cortez had discussions with patient's son at bedside given the gravity of her ischemic burden to her abdomen nonsurgical status and diminishing kidney function in the face of increasing need for pressor support that may only be
aggravating further her ischemia but I would favor placing the patient on comfort care as she is having continued significant abdominal pain and her measures right now only supportive in the face of unlikely interventions he had made the
recommendation for family to discuss entering into hospice care in the hospital to make her comfortable he promises to discuss with family and call me back
April 19--Dr. Cortez 6:30 AM/discussed at bedside with daughter /son POA discussed via phone
patient now with delirium diminished level response/increased respirations and diminishing urine output remains on double pressors hypothermic and hypotensive apparent impending respiratory failure and multiorgan failure ongoing spoke to patient's
son over phone and will make patient DNR/DNI/with further support of entrance to comfort care hopefully today waiting for family members to concur come to a consensus/did make the decision to convert to DNR/DNI status
Placed on comfort care afternoon of 19 April/continue fentanyl as needed as needed currently/secretions management as needed/oxygen as needed/consideration toward [facility] inpatient hospice early next week
Anticipated Discharge: Today
Subjective/Interval History
-
Date of Service: April 21, 2023
pt not responsive --rapid breathing--looks uncomfortable
Objective Data
-
Vital Signs:
max temp for 24 hours
04/20/23
07:00
Temp 98.6 F
Vital Signs
Temp Pulse Resp BP Pulse Ox
92.2 F L 83 17 89/46 93
04/21/23 00:01 04/21/23 07:00 04/21/23 07:00 04/21/23 07:00 04/21/23 09:06
I&O
04/20/23 04/21/23 04/22/23
06:59 06:59 06:59
Intake Total 886 / 886
Output Total 0 / 0
Balance 886 / 886
Review of Systems
-
Unable to obtain full review of systems at this time due to: Acuity
Physical Exam
-
General: Appears Chronically Ill and Cachectic
HEENT: Normocephalic, Atraumatic and Oxygen
Respiratory: Clear to Auscultation (rapid breathing rate)
Cardiac: Regular Rhythm and S1/S2; Negative Murmur
GI: Soft, Nontender, Nondistended and Normal Bowel Sounds
Musculoskeletal: No Clubbing, No Cyanosis and No Edema
Neuro: Awake and Alert
--- NOTE | 2023-04-21 13:17 | HOSPNOTE ---
Met with family and assessed patient. Spoke with attending the patient is actively dying discussed recommendations with attending. Emotional support given to family. Will continue to follow.
[2023-04-21] MEDS: MORPHINE 100 IV (13:18)
--- NOTE | 2023-04-21 14:28 | PTCARENOTE ---
pt started on Morphine drip 1mg/1mL/hr, pt O2 removed, pt passed within 10 mins. This nurse present at bedside with family while passing. Dr Thompson and hospice Nurse Rebekah Dunlap notified of pt passing by this nurse. Dr Thompson pronounced pt
at 14:25.
--- NOTE | 2023-04-21 14:31 | W.PN.DEATH ---
Pronouncement of
-
Called to see patient to pronounce.
No spontaneous heart tones or respirations noted.
Patient not responsive to verbal stimuli.
Patient is pronounced .
Time of : 14:25
Date of : 04/21/23
Cause of : Severe abdominal pain/recurrent sepsis, Acute kidney injury/no developing and lower urine output and acidosis
Family Notified: Yes (at bedside)
--- NOTE | 2023-04-21 14:34 | CM ---
Patient seen at bedside with physician and family. Patient pronounced by physician emotional supports. CM will continue to follow for discharge planning needs.
Plan;
--- NOTE | 2023-04-21 17:24 | PTCARENOTE ---
[facility] notified. Form in chart. Pt not suitable for [facility] due to age.
--- NOTE | 2023-04-21 17:56 | PTCARENOTE ---
pt post-mortem care complete, tagged and [place] [facility] [place] present. All jewelry removed by family, one set gold earrings, one nose ring. Gold hand ring was removed yesterday prior to hand swelling. All jewelry in possession of son.
--- NOTE | 2023-04-21 18:35 | W.DCSUMMARY ---
Discharge Summary
Discharge Data
Date of Admission: 04/16/23
Date of Discharge: 04/21/23
-
Pending Results: No
Hospital Course
Primary care physician : Sloane Lugo
Principal Discharge diagnosis : Severe abdominal pain with recurrent sepsis, acute kidney injury due to no urine output and acidosis
Chronic Discharge diagnosis : Hyperlipidemia, hypothyroidism, rheumatoid arthritis, osteoporosis, history of ruptured cerebral aneurysm status post clipping
Hospital Course : Patient was an 87-year-old female with a history of ruptured cerebral aneurysm clipping, osteoporosis, rheumatoid arthritis among others who presented with abdominal pain, nausea, and vomiting. Patient was discharged the day prior
after being admitted for a syncopal episode. When she arrived she was hypotensive and hypothermic. Initially it was thought her symptoms were vasovagal since she had hypotension and acute kidney injury treated with IV fluids. Hypothermia resolved
and this was thought to be a viral illness. Since discharge, the patient was complaining of worsening abdominal pain after she ate ice cream. This was ongoing as well throughout the past hospitalization. Pain was located across her navel. She
threw up a few times. There was no blood noticed. She was having trouble with difficulty swallowing solids. She denied any diarrhea. CAT scan of the abdomen showed 'shock bowel'. Patient was admitted.
Patient was initially admitted to the intensive care unit. She was seen in consultation by both GI and surgery. On April 18 and April 19, Dr. Cortez had discussions with the patient's son regarding the gravity of her ischemic burden to her
abdomen, nonsurgical status, and diminishing kidney function in the face of increasing needs for pressors. Recommendation was for family to discuss hospice care and make her comfort. On April 19, the patient had delirium with decreased and
diminished responsiveness with increased respirations and diminishing urine output. She was on 2 pressors and decision was made to convert the patient to DNR/DNI status. On the afternoon of April 19 she was placed on comfort measures.
On April 21, patient was in respiratory distress. Fentanyl was stopped and morphine drip started. Oxygen was removed. Patient quickly but comfortably at 2:25 PM on April 21, 2023. Cause of was listed as severe
abdominal pain with recurrent sepsis, acute kidney injury all likely due to ischemic bowel.
Discharge Plan
-
Patient Disposition:
Date/Time
Date/Time: 04/21/23 14:25
Discharge Date and Time
Discharge Date/Time: 04/21/23 14:25
== END 2023-04-21 14:25 | disposition expired | DRG 871 ==
LOC: 3 WEST ACU 20:44
PROVIDERS: Internal Medicine; Nurse Practitioner Primary Care; ADMITTING PHYSICIAN Hospitalist; ATTENDING PHYSICIAN Internal Medicine; CONSULT PHYSICIAN Internal Medicine Critical Care Medicine; CONSULT PHYSICIAN Internal Medicine Gastroenterology; EMERGENCY PHYSICIAN Emergency Medicine; FAMILY PHYSICIAN Family Medicine; OTHER PHYSICIAN Specialist; OTHER PHYSICIAN Surgery
DX: A41.9 Sepsis, unspecified organism (principal); E43 Unspecified severe protein-calorie malnutrition; J18.9 Pneumonia, unspecified organism; K55.059 Acute (reversible) ischemia of intestine, part and extent unspecified; N17.9 Acute kidney failure, unspecified; R18.8 Other ascites; K81.0 Acute cholecystitis; M48.56XA Collapsed vertebra, not elsewhere classified, lumbar region, initial encounter for fracture; I31.39 Other pericardial effusion (noninflammatory); E87.20 Acidosis, unspecified; R44.3 Hallucinations, unspecified; Z66 Do not resuscitate; Z51.5 Encounter for palliative care; I95.9 Hypotension, unspecified; R68.0 Hypothermia, not associated with low environmental temperature; D72.819 Decreased white blood cell count, unspecified; M81.0 Age-related osteoporosis without current pathological fracture; M06.9 Rheumatoid arthritis, unspecified; E03.9 Hypothyroidism, unspecified; E78.00 Pure hypercholesterolemia, unspecified; R13.10 Dysphagia, unspecified; R41.0 Disorientation, unspecified; K76.89 Other specified diseases of liver; R06.03 Acute respiratory distress; D64.9 Anemia, unspecified; E88.09 Other disorders of plasma-protein metabolism, not elsewhere classified; K44.9 Diaphragmatic hernia without obstruction or gangrene; M41.9 Scoliosis, unspecified; N28.1 Cyst of kidney, acquired; K57.90 Diverticulosis of intestine, part unspecified, without perforation or abscess without bleeding; I51.7 Cardiomegaly; Z79.890 Hormone replacement therapy; Z79.52 Long term (current) use of systemic steroids; Z79.1 Long term (current) use of non-steroidal anti-inflammatories (NSAID); Z68.25 Body mass index [BMI] 25.0-25.9, adult
CPT/HCPCS: 71045; 74177; 80048; 80053; 80202; 81003; 81015; 82962; 83036; 83605; 83690; 83735; 84145; 84484; 85025; 85027; 85610; 85730; 86850; 86900; 86901; 87040; 87070; 87086; 93005; 96361; 96374; 96375; 99291; Q9967